=== PATIENT | male | born 1975 | race Caucasian/White ===

== ENCOUNTER 2018-06-30 15:10 | Emergency (ER) | payer BC ==
[~2018-06-30 15:10] MED LIST: ALPRAZOLAM0.25 MG PO; ASPIRIN325 MG PO; BUPROPION HCL75 MG PO; CYCLOBENZAPRINE5 MG PO; FENOFIBRATE145 MG PO; LIPITOR20 MG PO; NICODERM CQ1 EAC1 TOP; PANTOPRAZOLE SO40 MG PO; TOPROL XL25 MG PO; TYLENOL WITH C1 EACH PO
--- OUTSIDE RECORDS SUMMARY | 2018-06-30 15:13 | XMS REPORT ---
Author Author [facility] Address Unknown Phone Unavailable Care Team Providers Care Law Clerk Name Role Phone MAICO GRACIA Unavailable Unavailable Problems This patient has no known problems. Allergies, Adverse Reactions, Alerts This patient has no known allergies or adverse reactions. Medications This patient has no known medications. Results Test Description Test Time Test Comments Text Results Atomic Results Result Comments CERVICAL SPINE 4 OR [address] [address] Patient Name: TI GERMAN MR #: [id number] : 1975 Age/Sex: 41/M Req #: [id number] [facility] Physician: MAICO GRACIA MD Ordered by: ANJEL ASHER MD Report #: [id number] Location: MED/SURG Room/Bed: 1091 Procedure: [id number] DX/CERVICAL SPINE 4 OR 5 VIEWS Exam Date: 01/16/17 Exam Time: 1610 REPORT STATUS: Signed Cervical Spine, 6 views HISTORY: Pain COMPARISON: None. FINDINGS: Limited sensitivity for detection of subtle fractures and ligamentous abnormalities. On the lateral view, the cervical spine is visualized from the skull base to C7. The alignment is normal. Vertebral body heights are maintained. No acute displaced fracture involving the visualized cervical spine. Prevertebral soft tissues are within normal limits. IMPRESSION: No acute radiographic abnormality. Signed by: Dr. Gaudencio Baum MD on 01/16/2017 4:52 PM Dictated By: GAUDENCIO BAUM MD 51 Transcribed By: MEME on 01/16/171651 COPY TO: ANJEL ASHER MD CT CHEST [address] [place] [address] Patient Name: TI GERMAN MR #: [id number] : 1975 Age/Sex: 41/M Req #: [id number] Adm Physician: MAICO GRACIA MD Ordered by: ANJEL ASHER MD Report #: [id number] Location: MED/SURG Room/Bed: Count includes the [facility] Procedure: [id number] CT/CT CHEST W Exam Date: 01/16/17 Exam Time: 1610 REPORT STATUS: Signed EXAM: CT Chest WITH contrast 01/16/2017 12:31 PM INDICATION: COMPARISON: None TECHNIQUE: Chest was scanned utilizing a multidetector helical scanner from the lung apex through the level of the adrenal glands without administration of IV contrast. Coronal and sagittal reformations were obtained. Routine protocol was performed. IV CONTRAST: 100 mL of Isovue-370 COMPLICATIONS: None RADIATION DOSE: Total DLP: 524.07 mGy*cm Estimated effective dose: (DLP x 0.014 x size factor) mSv CTDIvol has been reviewed. It is below the limits set by the Radiation Protocol Committee (RPC). FINDINGS: LINES/ TUBES: None. LUNGS AND AIRWAYS: The lungs are unremarkable. Airways are normal. PLEURA: The pleural spaces are clear. HEART AND MEDIASTINUM: The thyroid gland is normal. No mediastinal, hilar or axillary lymphadenopathy. The heart is normal in size.. There is no pericardial effusion. UPPER ABDOMEN: Unremarkable. BONES: Old or subacute fractures of the posterior right 11th, 10th, and ninth ribs. SOFT TISSUES: Unremarkable. IMPRESSION: No acute thoracic abnormality. Old or subacute fractures of the posterior right 11th, 10th, and 9th ribs. Signed by: Dr. Gaudencio Baum MD on 01/16/2017 5:10 PM Dictated By: GAUDENCIO BAUM MD 09 Transcribed By: MEME on 01/16/171709 COPY TO: ANJEL ASHER MD Stress Test - Treadmill ONLY [place] [address] Patient Name : TI GERMAN MR #: [id number] : 1975 Age/Sex: 41/M Adm Physician : MAICO GRACIA MD Admit Date : 01/15/17 Location : MED/SURG Room/Bed : Count includes the [facility] REPORT: Cardiology Report DATE OF STUDY: January 15, 2017 CARDIAC STRESS TEST TECHNICAL DETAILS: The protocol is Pepe with 85% heart rate at 150 per minute. RESULTS 1. Exercise time 8 minutes 31 seconds. 2. Test stopped because patient achieved his target heart rate. 3. Heart rate increased from 90 to 153 per minute. 4. Blood pressure increased from 130/80 to 176/89. 5. No EKG changes. 6. No chest pain. IMPRESSION: Negative cardiac stress test. Limitations of negative cardiac stress test are discussed. Job#: [id number] EV Signature Date Dictated By: ZACHERY MARTINEZ MD Transcribed By: HUSSEIN on 01/15/17 <Electronically signed by ZACHERY MARTINEZ MD><<Signature on File>>01/18/17 2999 COPY TO: CHEST SINGLE (PORTABLE) [facility] [address] [place] [address] Patient Name: TI GERMAN MR #: [id number] : 1975 Age/Sex: 41/M Req #: [id number] Adm Physician: Ordered by: TI PIZARRO MD Report #: [id number] Location: ER Room/Bed: Procedure: [id number] DX/CHEST SINGLE (PORTABLE) Exam Date: Exam Time: REPORT STATUS: Signed PROCEDURE: CHEST SINGLE (PORTABLE) COMPARISON: None. INDICATIONS: CHEST PAIN FINDINGS: LUNGS: No consolidations or edema. Perihilar opacities likely secondary to focal atelectasis. PLEURA: No effusions or pneumothorax. HEART T MEDIASTINUM: The heart is within normal size-limits. BONES T SOFT TISSUES: No acute findings. CONCLUSION: No acute thoracic abnormality. Jessy Leos D.O. Dictated by: Jessy Leos D.O. on 01/15/2017 at 7:35 Electronically approved by: Jessy Leos D.O. on 01/15/2017 at 7:35 Dictated By: JESSY LEOS DO 4 Transcribed By: KUNAL on 01/15/17734 COPY TO: TI PIZARRO MD
--- OUTSIDE RECORDS SUMMARY | 2018-06-30 15:13 | XMS REPORT | Clinical Summary ---
Author Author [facility] Address Unknown Phone Unavailable Care Team Providers Care Shirt Marker Name Role Phone Asked, No Pcp PCP Unavailable Allergies Comments Active Allergy Reactions Severity Noted Date Codeine Itching 11/26/2016 Medications End Date Status Medication Sig Dispensed Refills Start Date Active clonAZEPAM (KlonoPIN) 0.5 Take 0.5 mg 0 MG tablet by mouth 2 (two) times a day as needed for seizures. Active amitriptyline (ELAVIL) 50 Take 50 mg by 0 MG tablet mouth nightly. Active methocarbamol (ROBAXIN) Take 500 mg 0 500 MG tablet by mouth 4 (four) times a day. Active ALPRAZolam (XANAX) 0.5 MG Take 0.5 mg 0 tablet by mouth nightly as needed for anxiety. Active Problems Not on file Social History Date Tobacco Use Types Packs/Day Years Used Current Every Day Smoker Alcohol Use Drinks/Week oz/Week Comments Yes tonight Sex Assigned at Date Recorded Not on file Industry Job Start Date Occupation Not on file Not on file Not on file Travel End Travel History Travel Start No recent travel history available. Last Filed Vital Signs Not on file Plan of Treatment Health Maintenance Due Date Last Done Comments INFLUENZA VACCINE 11/03/2017 Results Not on fileafter 06/29/2017 Advance Directives Patient has advance care planning documents on file. For more information, eugene saez contact: Marek Londono [address] [place] [address]
--- NOTE | 2018-06-30 15:44 | NUR ---
NO RESPONSE FROM [facility]
== END 2018-06-30 16:36 | disposition short-term general hospital (02) ==
LOC: ER 15:10
DX: Z53.21 Procedure and treatment not carried out due to patient leaving prior to being seen by health care provider (principal)

== ENCOUNTER 2018-11-13 05:23 | Inpatient (IN) | payer SELFPAY ==
[~2018-11-13] VITALS: Ht 175.3 cm; Wt 104.3 kg
[2018-11-13] MEDS ORDERED: SODIUM CHLORIDE 0.9% 1000ML 1,000 ML ONE (05:52)
[2018-11-13] MEDS ORDERED: PANTOPRAZOLE 40 MG 10ML VIAL ONE (05:55)
[2018-11-13] MEDS ORDERED: SODIUM CHLORIDE 0.9% 1000ML 1,000 ML IV STA ×2 (05:56→08:13)
[2018-11-13] MEDS ORDERED: PANTOPRAZOLE 40 MG 10ML VIAL IV STA (05:56)
[2018-11-13] MEDS ORDERED: REGLAN10 MG PO (06:19)
[2018-11-13] MEDS ORDERED: OMEPRAZOLE40 MG PO (06:19)
[2018-11-13] MEDS ORDERED: METOPROLOL TART50 MG PO (06:19)
[2018-11-13 06:57] LABS: BASOPHILS % 0.4 % (0.0-1.0); EOSINOPHILS % 0.1 % (0.0-6.0); HEMATOCRIT 43.2 % (38.2-49.6); HEMOGLOBIN 14.6 g/dL (14.0-18.0); LYMPHOCYTES # (AUTO) 2.1 (1.0-3.2); MEAN CORPUSCULAR HGB CONC 33.8 g/dL (31-35); MEAN CORPUSCULAR VOLUME 82.9 fL (81-99); MONOCYTES # (AUTO) 0.6 (0.2-0.8); NEUTROPHILS # (AUTO) 6.7 (2.1-6.9); NEUTROPHILS % 71.1 % (38.7-80.0); PLATELET COUNT 342 x10e3/uL (140-360); RED BLOOD COUNT 5.21 x10e6/uL (4.3-5.7); RED CELL DISTRIBUTION WIDTH 14.2 % (11.7-14.4)
[2018-11-13] MEDS ORDERED: KETOROLAC TROMETHAMINE 30 MG/ML VIAL IV STA (06:58)
[2018-11-13 07:20] LABS: BILIRUBIN,URINE NEGATIVE (NEGATIVE); CLARITY,URINE CLEAR (CLEAR); COLOR,URINE YELLOW (YELLOW); KETONES,URINE NEGATIVE (NEGATIVE); LEUKOCYTE ESTERASE ,URINE NEGATIVE (NEGATIVE); NITRITE,URINE NEGATIVE (NEGATIVE); PROTEIN,URINE DIPSTICK NEGATIVE (NEGATIVE); URINE UROBILINOGEN 0.2 mg/dL (0.2 - 1)
[2018-11-13 07:22] LABS: ALANINE AMINOTRANSFERASE 99 IU/L (0-55); ALBUMIN 3.4 g/dL (3.5-5.0); ALBUMIN/GLOBULIN RATIO 0.9 (0.8-2.0); ALKALINE PHOSPHATASE 134 IU/L (40-150); BLOOD UREA NITROGEN 7 mg/dL (7-26); BUN/CREATININE RATIO 8 (6-25); CALCIUM 8.8 mg/dL (8.4-10.2); CARBON DIOXIDE 21 mmol/L (22-29); CHLORIDE 102 mmol/L (98-107); CREATINE KINASE 51 IU/L (30-200); CREATININE, SERUM 0.83 mg/dL (0.72-1.25); EST GLOMERULAR FILTRATION RATE > 60 ML/MIN (60-); GLUCOSE 96 mg/dL (74-118); SODIUM 139 mmol/L (136-145)
[2018-11-13 07:26] LABS: INR 0.96; PARTIAL THROMBOPLASTIN TIME 27.5 seconds (23.8-35.5); PROTHROMBIN TIME 13.3 seconds (11.9-14.5)
[2018-11-13 07:31] LABS: AMPHETAMINES SCREEN,URINE NEGATIVE (NEGATIVE); BENZODIAZEPINES SCREEN,URINE NEGATIVE (NEGATIVE); PHENCYCLIDINE SCREEN,URINE NEGATIVE (NEGATIVE)
[2018-11-13 07:33] LABS: BACTERIA,URINE FEW /HPF; EPITHELIAL CELLS,URINE FEW /LPF; WBC,URINE (MAN) 0-5 /HPF (0-5)
--- NOTE | 2018-11-13 08:35 | Diagnostic Imaging Report ---
EXAMINATION: CHEST SINGLE (PORTABLE) INDICATION: CHEST PAIN COMPARISON: None FINDINGS: TUBES and LINES: None. LUNGS: There are bibasilar atelectasis. There is no evidence of pneumonia or pulmonary edema. PLEURA: No pleural effusion or pneumothorax. HEART AND MEDIASTINUM: The cardiomediastinal silhouette is unremarkable. BONES AND SOFT TISSUES: No acute osseous lesion. UPPER ABDOMEN: No free air under the diaphragm. IMPRESSION: Bibasilar atelectasis. Signed by: Dr. Mal Campbell M.D. on 11/13/2018 8:32 AM
--- NOTE | 2018-11-13 09:42 | Diagnostic Imaging Report ---
CT Abdomen And Pelvis with Intravenous Contrast INDICATION: ^BASSEM ABD PAIN H/O PANCREATITIS ^[id number] ^[id number] TECHNIQUE: Thin collimation axial images obtained from the diaphragm to the level of the pubic symphysis following the uneventful administration of 100 cc of low osmolar, nonionic intravenous contrast. Dose reduction techniques used: Automated exposure control, adjustment of the mAs and/or kVp according to patient size, standardized low-dose protocol, and/or iterative reconstruction technique. RADIATION DOSE: Total DLP: 857.3 mGy*cm Estimated effective dose: (DLP x 0.015 x size factor) mSv CTDIvol has been reviewed. It is below the limits set by the Radiation Protocol Committee (RPC). COMPARISON: None. ABDOMEN FINDINGS: Lung Bases: Clear. Small fat-containing left Bochdalek hernia. The visualized portions of the mediastinum are normal. Liver: Significant steatosis. The right lobe measures 20 cm in length. No evidence for mass. Gallbladder: Absent. Biliary tree: No biliary ductal dilatation. Pancreas: Uniform enhancement of the parenchyma with inflammation surrounding the head, neck, and body. No calcifications or ductal dilatation. Spleen: Normal in size. No evidence of mass.. Adrenal Glands: No evidence for mass. Kidneys: Right: Normal enhancement. No soft tissue mass. No hydronephrosis. Left: Normal enhancement. No soft tissue mass. No hydronephrosis. Lymph Nodes: No enlarged abdominal or periaortic lymph nodes. Aorta: Normal in diameter PELVIS FINDINGS: Bowel: Stomach: Normal. Small Bowel: Normal in caliber with normal wall thickness. Large Bowel: Normal in caliber with normal wall thickness. Appendix: Normal appendix. Bladder: Normal. Peritoneum/retroperitoneum: No free fluid or fluid collection. Several isoattenuating foci of soft tissue surrounding the pancreas body and proximal tail extending into the left pararenal space are suggestive of walled off necrosis. There is no associated fat induration to suggest acuity. These may be chronic. Bones: Unremarkable for age. IMPRESSION: 1. Acute interstitial pancreatitis. Several areas of peripancreatic soft tissue are suggestive of healed areas of wall off necrosis. 2. Profound steatosis. Hepatomegaly. 3. Cholecystectomy. Normal biliary tree. Signed by: Dr. Rohan Erwin MD on 11/13/2018 9:39 AM
[2018-11-13] MEDS ORDERED: HYDROMORPHONE 1MG/1ML INJ IV NR (09:45)
[2018-11-13] MEDS ORDERED: ONDANSETRON HCL INJ 2MG/ML 2ML 2 MG/ML VIAL IV NR (10:00)
[2018-11-13 10:24] LABS: CHOLESTEROL 161 MD/DL (0-199); HDL CHOLESTEROL 40 MG/DL (40-60); TRIGLYCERIDES 889 MG/DL (0-149)
[2018-11-13] MEDS: D5.45%NS/KCL 20MEQ 1,000 ML IV SCH ×3 (10:46→20:06)
--- OUTSIDE RECORDS SUMMARY | 2018-11-13 10:52 | XMS REPORT | Clinical Summary ---
Author Author [facility] Organization [facility] Address Unknown Phone Unavailable Care Team Providers Care Financial Services Rep Name Role Phone Asked, No Pcp PCP Unavailable Allergies No Known Allergies Medications End Date Status Medication Sig Dispensed Refills Start Date Active omeprazole (PriLOSEC) 20 Take 20 mg by 0 MG capsule mouth daily. Active oxyCODone-acetaminophen Take 1 tablet 0 (PERCOCET) 5-325 mg per by mouth 9 tablet every 6 (six) hours as needed. 11/30/2018 Active metoprolol tartrate Take 1 tablet 60 tablet 1 (LOPRESSOR) 50 mg tablet (50 mg total) 9 by mouth 2 (two) times a day for 30 days. 08/09/2018 Discontinued clonAZEPAM (KlonoPIN) 0.5 Take 0.5 mg 0 MG tablet by mouth 2 (two) times a day as needed for seizures. 08/09/2018 Discontinued amitriptyline (ELAVIL) 50 Take 50 mg by 0 MG tablet mouth nightly. 08/09/2018 Discontinued methocarbamol (ROBAXIN) Take 500 mg 0 500 MG tablet by mouth 4 (four) times a day. 10/31/2018 Discontinued ALPRAZolam (XANAX) 0.5 MG Take 0.5 mg 0 tablet by mouth daily as needed for anxiety. 09/10/2018 pantoprazole (PROTONIX) Take 1 tablet 60 tablet 0 40 MG EC tablet (40 mg total) 9 by mouth 2 (two) times a day for 30 days. 09/10/2018 amitriptyline (ELAVIL) 50 Take 1 tablet 30 tablet 0 MG tablet (50 mg total) 9 by mouth nightly for 30 days. 09/10/2018 buPROPion XL (WELLBUTRIN Take 1 tablet 30 tablet 0 XL) 150 MG 24 hr tablet (150 mg 9 total) by mouth daily for 30 days. 08/12/2018 Discontinued traMADol (ULTRAM) 50 mg Take 1 tablet 15 tablet 0 tablet (50 mg total) 9 by mouth every 8 (eight) hours as needed for moderate pain for up to 5 days. 09/11/2018 hydrocortisone Insert 1 60 0 (ANUSOL-HC) 25 mg suppository suppository 9 suppository (25 mg total) into the rectum 2 (two) times a day for 30 days. 08/19/2018 Discontinued acetaminophen-codeine Take 1 tablet 15 tablet 0 (TYLENOL WITH CODEINE #3) by mouth 9 300-30 mg per tablet every 8 (eight) hours as needed for moderate pain for up to 5 days. 09/19/2018 pancrelipase, Take 1 90 capsule 0 [id number], capsule by 9 (ZENPEP) 20,000-63,000- mouth 3 84,000 unit (three) times capsule,delayed a day with release(DR/EC) DR capsule meals for 30 days. 10/10/2018 HYDROcodone-acetaminophen Take 1-2 20 tablet 0 (NORCO) 5-325 mg per tablets by 9 tablet mouth every 6 (six) hours as needed for moderate pain or severe pain for up to 5 days. Max Daily Amount: 8 tablets 10/22/2018 HYDROcodone-acetaminophen Take 1 tablet 12 tablet 0 (NORCO) 5-325 mg per by mouth 9 tablet every 6 (six) hours as needed for moderate pain for up to 3 days. Max Daily Amount: 4 tablets 11/05/2018 ALPRAZolam (XANAX) 0.5 MG Take 1 tablet 5 tablet 0 tablet (0.5 mg 9 total) by mouth daily as needed for anxiety for up to 5 days. Active Problems Problem Noted Date Pancreatitis 10/31/2018 Chronic pancreatitis 10/05/2018 Abdominal pain 10/03/2018 Hypertension 10/03/2018 Acute on chronic pancreatitis 08/17/2018 Pancreatic pseudocyst 08/10/2018 Acute pancreatitis 08/09/2018 Resolved Problems Problem Noted Date Resolved Date Intractable abdominal pain 10/03/2018 10/05/2018 Gallstones 10/03/2018 10/05/2018 Gall stone pancreatitis 08/18/2018 10/05/2018 Encounters Care Team Description Date Type Specialty Giovanni Kern MD Yerramadha, Muralidhar Reddy, MD Teqwimuah, Remy, DO Al-Lahiq, Maha, MD Acute on chronic pancreatitis (HCC) (Primary Dx); Essential hypertension; Right upper quadrant abdominal pain 10/30/2018 [facility] General Internal Medicine - Encounter 10/31/2018 Matthieu Morocho MD 10/19/2018 Orders Only General Surgery Macy Colindres MA 10/19/2018 [place] Shmuel Bauman MD CHOLECYSTECTOMY, LAPAROSCOPIC 10/04/2018 Surgery General Surgery Cruzito Singletary MD 10/04/2018 Anesthesia General Surgery Event José Dai MD Yerramadha, Muralidhar Reddy, MD Gall stone pancreatitis (Primary Dx); Intractable abdominal pain; Gallbladder sludge; Chronic pancreatitis, unspecified pancreatitis type (HCC); Pancreatic pseudocyst; Right upper quadrant abdominal pain; Essential hypertension; Chronic biliary pancreatitis (HCC) 10/03/2018 Hospital General Surgery - Encounter 10/06/2018 10/03/2018 Travel Stevie Hunt DO Yerramadha, Muralidhar Reddy, MD Acute on chronic pancreatitis (HCC) (Primary Dx); Generalized anxiety disorder; Pancreatic pseudocyst 08/16/2018 [facility] General Internal Medicine - Encounter 08/19/2018 Bimal Paniagua MD ESOPHAGOGASTRODUODENOSCOPY (EGD) 08/10/2018 Surgery Gastroenterology Lopez De Anda MD 08/10/2018 Anesthesia Gastroenterology Event Marvin Molina MD Yerramadha, Muralidhar Reddy, MD Acute pancreatitis, unspecified complication status, unspecified pancreatitis type (Primary Dx); Pseudocyst of pancreas; Dehydration; Intractable vomiting with nausea, unspecified vomiting type; Gastrointestinal hemorrhage associated with anorectal source 08/09/2018 [facility] General Internal Medicine - Encounter 08/12/2018 after 11/12/2017 Family History Medical History Relation Name Comments Aneurysm Brother Heart disease Father Hypertension Father Diabetes Mother Heart disease Mother Hypertension Mother Relation Name Status Comments Brother Alive Brother Father Alive Mother Alive Sister Alive Social History Date Tobacco Use Types Packs/Day Years Used Former Smoker Smokeless Tobacco: Never Used Comments: vape Alcohol Use Drinks/Week oz/Week Comments Yes Sex Assigned at Date Recorded Male 11/01/2018 2:42 PM CDT Industry Job Start Date Occupation Not on file Not on file Not on file Travel End Travel History Travel Start No recent travel history available. Last Filed Vital Signs Time Taken Vital Sign Reading 10/31/2018 2:46 PM CDT Blood Pressure 143/93 10/31/2018 2:46 PM CDT Pulse 122 10/31/2018 2:46 PM CDT Temperature 36.9 C (98.4 F) 10/31/2018 2:46 PM CDT Respiratory Rate 20 10/31/2018 2:46 PM CDT Oxygen Saturation 95% - Inhaled Oxygen - Concentration 10/30/2018 2:16 PM CDT Weight 99.8 kg (220 lb) 10/30/2018 2:16 PM CDT Height 175.3 cm (5' 9") 10/30/2018 2:16 PM CDT Body Mass Index 32.49 Plan of Treatment Health Maintenance Due Date Last Done Comments INFLUENZA VACCINE 11/03/2018 Procedures Comments Procedure Name Priority Date/Time Associated Diagnosis CT ABDOMEN PELVIS W STAT 10/30/2018 CONTRAST 3:54 PM CDT ESTIMATED GFR STAT 10/30/2018 2:27 PM CDT URINALYSIS SCREEN AND STAT 10/30/2018 MICROSCOPY, WITH REFLEX 2:27 PM CDT TO CULTURE HEPATIC FUNCTION PANEL STAT 10/30/2018 2:27 PM CDT LIPASE LEVEL STAT 10/30/2018 2:27 PM CDT BASIC METABOLIC PANEL STAT 10/30/2018 2:27 PM CDT HC COMPLETE BLD COUNT STAT 10/30/2018 W/AUTO DIFF 2:27 PM CDT URINE CULTURE STAT 10/30/2018 2:27 PM CDT ESTIMATED GFR Routine 10/05/2018 5:46 AM CDT HC COMPLETE BLD COUNT Routine 10/05/2018 W/AUTO DIFF 5:46 AM CDT COMPREHENSIVE METABOLIC Routine 10/05/2018 PANEL 5:46 AM CDT CHOLECYSTECTOMY, 10/04/2018 Gallstone pancreatitis LAPAROSCOPIC, WITH 8:45 PM CDT POSSIBLE CHOLANGIOGRAPHY SURGICAL PATHOLOGY Routine 10/04/2018 REQUEST 7:54 PM CDT IN AN ELECTIVE Routine 10/04/2018 ENDOTRACHEAL AIRWAY 7:36 PM CDT Procedure Note - Hung Madera CRNA - 10/04/2018 7:36 PM CDT Airway Performed by: Hung Madera CRNA Authorized by: Cruzito Singletary MD Location: OR Urgency: Elective Difficult Airway: No Anesthesio logist: Cruzito Singletary MD Resident/C RNA/AA: Hung Madera CRNA Performed by: anesthesio logist Preoxygena rupal with 100% O2: Yes Mask Ventilatio n: Easy mask Final Airway Type: Endotrache al airway Final Endotrache al Airway: ETT Cuffed: Yes Technique Used: Direct laryngosco py Devices/Me thods Used in Placement: Intubatin g stylet Insertion Site: Oral Blade Type: [place] Laryngosco pe Blade/Vide olaryngosc ope Blade Size: 2 ETT Size (mm): 7.0 Cuff at minimum occlusion pressure: Yes Measured from: Lips ETT to Lips (cm): 23 Placement Verified by: CO2 detection, direct visualizat ion and equal breath sounds Laryngosco pic view: Grade IIb - view of arytenoids or posterior of glottis only Rapid Sequence Induction (RSI): No Modified RSI: No Number of Attempts at Approach: 2 ESTIMATED GFR Routine 10/04/2018 5:34 AM CDT HC COMPLETE BLD COUNT Routine 10/04/2018 W/AUTO DIFF 5:34 AM CDT COMPREHENSIVE METABOLIC Routine 10/04/2018 PANEL 5:34 AM CDT US GALLBLADDER STAT 10/03/2018 10:[address] ABDOMEN PELVIS W STAT 10/03/2018 CONTRAST 8:30 AM CDT ECG 12-LEAD STAT 10/03/2018 7:32 AM CDT ESTIMATED GFR STAT 10/03/2018 7:25 AM CDT TROPONIN STAT 10/03/2018 7:25 AM CDT LIPASE LEVEL STAT 10/03/2018 7:25 AM CDT HEPATIC FUNCTION PANEL STAT 10/03/2018 7:25 AM CDT BASIC METABOLIC PANEL STAT 10/03/2018 7:25 AM CDT HC COMPLETE BLD COUNT STAT 10/03/2018 W/AUTO DIFF 7:25 AM CDT ECG ED PRELIMINARY Routine 10/03/2018 INTERPRETATION 6:[address] ABDOMEN PELVIS W WO Routine 08/17/2018 CONTRAST 4:31 PM CDT LIPASE LEVEL Routine 08/17/2018 6:15 AM CDT ESTIMATED GFR STAT 08/16/2018 11:20 PM CDT LIPASE LEVEL STAT 08/16/2018 11:20 PM CDT COMPREHENSIVE METABOLIC STAT 08/16/2018 PANEL 11:20 PM CDT HC COMPLETE BLD COUNT STAT 08/16/2018 W/AUTO DIFF 11:20 PM CDT ESTIMATED GFR Routine 08/12/2018 5:45 AM CDT BASIC METABOLIC PANEL Routine 08/12/2018 5:45 AM CDT HC COMPLETE BLD COUNT Routine 08/12/2018 W/AUTO DIFF 5:45 AM CDT HEMOGLOBIN & HEMATOCRIT Routine 08/11/2018 6:36 PM CDT HEMOGLOBIN & HEMATOCRIT Routine 08/11/2018 10:21 AM CDT ESOPHAGOGASTRODUODENOSCOP 08/10/2018 EPIGASTRIC PAIN Y (EGD) 2:00 PM CDT SURGICAL PATHOLOGY Routine 08/10/2018 REQUEST 1:39 PM CDT ESTIMATED GFR Routine 08/10/2018 4:54 AM CDT LIPASE LEVEL Routine 08/10/2018 4:54 AM CDT COMPREHENSIVE METABOLIC Routine 08/10/2018 PANEL 4:54 AM CDT CREATINE KINASE, TOTAL Timed 08/09/2018 (CPK) 4:18 PM CDT LIPID PANEL Timed 08/09/2018 4:18 PM CDT LACTIC ACID LEVEL, SEPSIS Timed 08/09/2018 - NOW AND REPEAT 2X EVERY 4:18 PM CDT 3 HOURS LACTIC ACID LEVEL, SEPSIS Timed 08/09/2018 - NOW AND REPEAT 2X EVERY 6:30 AM CDT [address] ABDOMEN PELVIS W STAT 08/09/2018 CONTRAST 4:33 AM CDT US GALLBLADDER STAT 08/09/2018 4:01 AM CDT ESTIMATED GFR STAT 08/09/2018 3:25 AM CDT LACTIC ACID LEVEL, SEPSIS STAT 08/09/2018 - NOW AND REPEAT 2X EVERY 3:25 AM CDT 3 HOURS LIPASE LEVEL STAT 08/09/2018 3:25 AM CDT HEPATIC FUNCTION PANEL STAT 08/09/2018 3:25 AM CDT MAGNESIUM LEVEL STAT 08/09/2018 3:25 AM CDT HC COMPLETE BLD COUNT STAT 08/09/2018 W/AUTO DIFF 3:25 AM CDT BASIC METABOLIC PANEL STAT 08/09/2018 3:25 AM CDT URINALYSIS SCREEN AND STAT 08/09/2018 MICROSCOPY, WITH REFLEX 3:20 AM CDT TO CULTURE URINE CULTURE STAT 08/09/2018 3:20 AM CDT ECG 12-LEAD Routine 08/09/2018 2:20 AM CDT after 11/12/2017 Results * CT Abdomen Pelvis W Contrast (10/30/2018 3:54 PM CDT) Only the most recent of 3 results within the time period is included. Specimen Narrative Performed At EXAMINATION:CT ABDOMEN PELVIS W CONTRAST RADIANT CLINICAL HISTORY:epigastric painpancreatitis TECHNIQUE: Multiple axial images of the abdomen and pelvis were obtained following intravenous administration of iodinated contrast. CT imaging was performed with iterative reconstruction technique and/or automated exposure control to reduce radiation dose. COMPARISON: 10/03/2018 IMPRESSION: ABDOMEN: 1. Liver: Moderate to severe fatty infiltration of liver. No mass. 2. Gallbladder: The gallbladder is surgically absent. Interval cholecystectomy. 3. Spleen: The spleen is not enlarged. 4. Pancreas: Small peripancreatic pseudocysts stable versus slightly decreased in size. Small pseudocyst anterior to the neck of the pancreas measures 2.9 cm previously measuring 3.5 cm when remeasured at the same level. No new inflammatory changes. 5. Adrenal Glands: The adrenal glands are unremarkable. 6. Kidneys: The kidneys are unremarkable. No mass, hydronephrosis or calculi. 7. Abdominal Aorta: The abdominal aorta is nonaneurysmal. 8. Nodes: No enlarged retroperitoneal or mesenteric lymphadenopathy. 9. Bowel: No bowel obstruction or inflammatory changes of the large or small bowel. The appendix is normal. 10. Ascites: No ascites or fluid collections. PELVIS: 1.Pelvis: No mass, fluid collection or significant adenopathy. 2. Bones: Osseous structures intact. No suspicious lesions. 3. Lung Bases: Unremarkable SUMMARY: 1. Slight decrease in peripancreatic pseudocysts. No new inflammation of the pancreas or CT findings of acute interstitial pancreatitis. 2.Moderate to severe fatty infiltration of the liver. Interval cholecystectomy. [id number] Procedure Note Interface, Radiology Results Incoming - 10/30/2018 4:13 PM CDT EXAMINATION: CT ABDOMEN PELVIS W CONTRAST CLINICAL HISTORY: epigastric pain pancreatitis TECHNIQUE: Multiple axial images of the abdomen and pelvis were obtained following intravenous administration of iodinated contrast. CT imaging was performed with iterative reconstruction technique and/or automated exposure control to reduce radiation dose. COMPARISON: 10/03/2018 IMPRESSION: ABDOMEN: 1. Liver: Moderate to severe fatty infiltration of liver. No mass. 2. Gallbladder: The gallbladder is surgically absent. Interval cholecystectomy. 3. Spleen: The spleen is not enlarged. 4. Pancreas: Small peripancreatic pseudocysts stable versus slightly decreased in size. Small pseudocyst anterior to the neck of the pancreas measures 2.9 cm previously measuring 3.5 cm when remeasured at the same level. No new inflammatory changes. 5. Adrenal Glands: The adrenal glands are unremarkable. 6. Kidneys: The kidneys are unremarkable. No mass, hydronephrosis or calculi. 7. Abdominal Aorta: The abdominal aorta is nonaneurysmal. 8. Nodes: No enlarged retroperitoneal or mesenteric lymphadenopathy. 9. Bowel: No bowel obstruction or inflammatory changes of the large or small bowel. The appendix is normal. 10. Ascites: No ascites or fluid collections. PELVIS: 1. Pelvis: No mass, fluid collection or significant adenopathy. 2. Bones: Osseous structures intact. No suspicious lesions. 3. Lung Bases: Unremarkable SUMMARY: 1. Slight decrease in peripancreatic pseudocysts. No new inflammation of the pancreas or CT findings of acute interstitial pancreatitis. 2. Moderate to severe fatty infiltration of the liver. Interval cholecystectomy. [facility]-[id number] Performing Organization Address City/State/Zipcode Phone Number [facility] [address] [place] [address] * Urinalysis screen and microscopy, with reflex to culture (10/30/2018 2:27 PM CDT) Only the most recent of 2 results within the time period is included. Specimen site Clean catch [facility] Color, UA Yellow [facility] Appearance, UA Clear [facility] Specific 1.025 1.001 - 1.035 JARA gravity, UA [facility] pH, UA 5.0 5.0 - 8.5 [facility] Protein, UA 1+ (A) Negative [facility] Glucose, UA Negative Negative [facility] Ketones, UA 2+ (A) Negative [facility] Bilirubin, UA Negative Negative [facility] Blood, UA Negative Negative [facility] Nitrite, UA Negative Negative [facility] Urobilinogen, Negative <2.0 [facility] Leukocyte Negative Negative [place] esterase, UA [facility] Epithelial None seen Few /HPF [facility] cells, UA [facility] WBC, UA 0-5 0 - 1 /HPF [facility] RBC, UA 0-5 0 - 5 /HPF [facility] Bacteria, UA None seen None seen [facility] Yeast, UA None seen [facility] Yeast with None seen [place] pseudohyphaeUT [facility] Specimen Urine Performing Organization Address [facility] Phone Number [address] [place] [address] PATHOLOGY AND GENOMIC MEDICINE [address] * Estimated GFR (10/30/2018 2:27 PM CDT) Only the most recent of 8 results within the time period is included. Pathologist [facility] Estimated GFR >=90 mL/min/1.73 m2 [place] Comment: [facility] rpretation G1 >=90 Normal or high G2 60-89Mildly decreased P3n24-23 Mildly to moderately decreased E3d24-86 Moderately to severely decreased G4 15-29Severely decreased G5 <15Kidney failure The eGFR was calculated using the Chronic Kidney Disease Epidemiology Collaboration (CKD-EPI) equation. Interpretation is based on recommendations of the National Kidney Foundation-Kidney Disease Outcomes Quality Initiative (NKF-KDOQI) published in 2014. Specimen Plasma specimen Performing Organization Address City/[facility]/Zipcode Phone Number [address] [place] [address] PATHOLOGY AND GENOMIC MEDICINE [address] * CBC with platelet and differential (10/30/2018 2:27 PM CDT) Only the most recent of 7 results within the time period is included. Pathologist [facility] WBC 5.98 4.50 - 11.00 k/uL [facility] RBC 5.01 4.40 - 6.00 m/uL [facility] HGB 13.8 (L) 14.0 - 18.0 g/dL [facility] HCT 43.0 41.0 - 51.0 % [facility] MCV 85.8 82.0 - 100.0 fL [facility] MCH 27.5 27.0 - 34.0 pg [facility] MCHC 32.1 31.0 - 37.0 g/dL [facility] RDW - SD 45.5 37.0 - 55.0 fL [facility] MPV 8.9 8.8 - 13.2 fL [facility] Platelet count 323 150 - 400 k/uL [facility] Nucleated RBC 0.00 /100 WBC [facility] Neutrophils 64.4 39.0 - 69.0 % [facility] Lymphocytes 26.6 25.0 - 45.0 % [facility] Monocytes 8.0 0.0 - 10.0 % [facility] Eosinophils 0.0 0.0 - 5.0 % [facility] Basophils 0.8 0.0 - 1.0 % [facility] Specimen Blood Performing Organization Address City/[facility] Phone Number [address] [place] [address] PATHOLOGY AND GENOMIC MEDICINE [address] * Urine culture (10/30/2018 2:27 PM CDT) Only the most recent of 2 results within the time period is included. Urine culture SEE COMMENTComment: [facility] Bacteriuria screen negative. [facility] Specimen Urine Performing Organization Address City/[facility]/Zipcode Phone Number [address] [place] [address] PATHOLOGY AND GENOMIC MEDICINE [address] * Lipase level (10/30/2018 2:27 PM CDT) Only the most recent of 6 results within the time period is included. Lipase 41 13 - 60 U/L [facility] Specimen Plasma specimen Performing Organization Address [facility] Phone Number [facility] DEPARTMENT OF [address] [place] [address] [place] [address] PATHOLOGY AND GENOMIC MEDICINE [address] * Hepatic function panel (10/30/2018 2:27 PM CDT) Only the most recent of 3 results within the time period is included. Pathologist [facility] Albumin 4.2 3.5 - 5.0 g/dL [facility] Total bilirubin 0.6 0.0 - 1.2 mg/dL [facility] Bilirubin <0.1 0.0 - 0.3 mg/dL [place] direct [facility] Alkaline 108 40 - 129 U/L [place] phosphatase [facility] Protein 8.1 6.3 - 8.3 g/dL [place] Comment: [facility] 4.6-7.0 g/dL 1 week 4.4-7.6 g/dL 7 months-1year 5.1-7.3 g/dL 1-2 years5.6-7 .5 g/dL >3 years6.0-8 .0 g/dL 18-150 6.3-8.3 g/dL ALT 33 5 - 50 U/L [facility] AST 34 10 - 50 U/L [facility] Specimen Plasma specimen Performing Organization Address [facility] Phone Number [facility] DEPARTMENT OF [facility] [place] [address] PATHOLOGY AND GENOMIC MEDICINE [address] * Basic metabolic panel (10/30/2018 2:27 PM CDT) Only the most recent of 4 results within the time period is included. Sodium 140 135 - 148 mEq/L [facility] Potassium 3.7 3.5 - 5.0 mEq/L [facility] Chloride 98 98 - 112 mEq/L [facility] CO2 19 (L) 24 - 31 mEq/L [facility] Anion gap 23@ANIO (H) 7 - 15 mEq/L [facility] BUN 5 (L) 6 - 20 mg/dL [facility] Creatinine 0.80 0.70 - 1.20 mg/dL [facility] Glucose 82 65 - 99 mg/dL [facility] Calcium 9.3 8.3 - 10.2 mg/dL [facility] Specimen Plasma specimen Performing Organization Address City/State/Zipcode [place] [address] [place] [address] PATHOLOGY AND GENOMIC MEDICINE [facility] [address] [place] [address] [facility] * Comprehensive metabolic panel (10/05/2018 5:46 AM CDT) Only the most recent of 4 results within the time period is included. Sodium 138 135 - 148 mEq/L [facility] Potassium 4.5 3.5 - 5.0 mEq/L [facility] Chloride 104 98 - 112 mEq/L [facility] CO2 24 24 - 31 mEq/L [facility] Anion gap 10@ANIO 7 - 15 mEq/L [facility] BUN 5 (L) 6 - 20 mg/dL [facility] Creatinine 0.90 0.70 - 1.20 mg/dL [facility] Glucose 150 (H) 65 - 99 mg/dL [facility] Calcium 9.4 8.3 - 10.2 mg/dL [facility] Protein 7.3 6.3 - 8.3 g/dL [place] Comment: [facility] 4.6-7.0 g/dL 1 week 4.4-7.6 g/dL 7 months-1year 5.1-7.3 g/dL 1-2 years5.6-7 .5 g/dL >3 years6.0-8 .0 g/dL 18-150 6.3-8.3 g/dL Albumin 3.9 3.5 - 5.0 g/dL [facility] A/G ratio 1.1 0.7 - 3.8 [facility] Alkaline 107 40 - 129 U/L [place] phosphatase [facility] AST 38 10 - 50 U/L [facility] ALT 29 5 - 50 U/L [facility] Total bilirubin 0.4 0.0 - 1.2 mg/dL [facility] Specimen Plasma specimen Performing Organization Address City/State/Zipcode [place] [facility] [place] [place] [address] [place] [address] PATHOLOGY AND GENOMIC MEDICINE [place] [address] * Surgical pathology request (10/04/2018 7:54 PM CDT) Only the most recent of 2 results within the time period is included. [facility] DEPARTMENT OF PATHOLOGY AND GENOMIC MEDICINE Surgical See link below for PDF Lab [facility] pathology Report DEPARTMENT OF report PATHOLOGY AND GENOMIC MEDICINE Result status This is Final Report for [facility] [id number] DEPARTMENT OF PATHOLOGY AND GENOMIC MEDICINE Specimen Performing Organization Address City/[facility] Phone Number [facility] DEPARTMENT [address] [place] [address] PATHOLOGY AND GENOMIC MEDICINE * US Gallbladder (10/03/2018 10:26 AM CDT) Only the most recent of 2 results within the time period is included. Specimen Narrative Performed At EXAMINATION:US GALLBLADDER [facility] CLINICAL HISTORY:RUQ painsludge seen on CT COMPARISON:None. FINDINGS: PANCREAS: The pancreas is not well seen on the current study. LIVER: The liver has no mass lesion. There is no intrahepatic biliary dilatation. The liver has a normal echogenic appearance. CBD: 0.5 cm, within normal limits. Portal vein: The portal vein demonstrates normal hepatopedal flow. Gallbladder:The gallbladder is without evidence of calculi. The gallbladder wall is not thickened and there is no pericholecystic fluid. IMPRESSION: 1. Normal gallbladder ultrasound examination. [id number] Procedure Note Hm Interface, Radiology Results Incoming - 10/03/2018 10:39 AM CDT EXAMINATION: US GALLBLADDER CLINICAL HISTORY: RUQ pain sludge seen on CT COMPARISON: None. FINDINGS: PANCREAS: The pancreas is not well seen on the current study. LIVER: The liver has no mass lesion. There is no intrahepatic biliary dilatation. The liver has a normal echogenic appearance. CBD: 0.5 cm , within normal limits. Portal vein: The portal vein demonstrates normal hepatopedal flow. Gallbladder: The gallbladder is without evidence of calculi. The gallbladder wall is not thickened and there is no pericholecystic fluid. IMPRESSION: 1. Normal gallbladder ultrasound examination. [id number] Performing Organization Address [facility] [place] Phone Number [facility] [address] [place] [address] * ECG 12 lead (10/03/2018 7:32 AM CDT) Only the most recent of 2 results within the time period is included. Ventricular 113 [facility] MUSE rate Atrial rate 113 [facility] IN interval 136 [facility] QRSD interval 74 [facility] QT interval 312 [facility] QTC interval 427 [facility] P axis 1 34 [facility] QRS axis 1 17 [facility] MUSE T wave axis 23 [facility] MUSE EKG impression Sinus tachycardia-Junctional HM MUSE ST depression, probably normal-Borderline ECG-In automated comparison with ECG of 09-AUG-2018 02:20,-ST now depressed in Inferior leads- Specimen Narrative Performed At Performing Organization Address [facility] [place] Phone Number [facility] [place] [address] [place] [address] * Troponin (10/03/2018 7:25 AM CDT) Pathologist [facility] Troponin <0.006 0.000 - 0.040 ng/mL [facility] Comment: MIRANDA LILLY [facility] changed methodology effective: 08/09/2018 at 10:00 am The new method has a 99th percentile cutoff of 0.040 ng/mL Specimen Plasma specimen Performing Organization Address [facility] [place] [address] [place] [address] PATHOLOGY AND GENOMIC MEDICINE [place] MIRANDA LILLY [address] * ECG ED Preliminary Interpretation - Not an Order (10/03/2018 6:54 AM CDT) Narrative Performed At José Dai MD 10/03/20189:30 AM ECG ED Preliminary Interpretation - Not an Order Performed by: José Dai MD Authorized by: José Dai MD ECG reviewed by ED Physician in the absence of a stator connector: yes ([id number]) Previous ECG: Previous ECG:Compared to current Comparison ECG info:08/19/18 Similarity:No change Interpretation: Interpretation: abnormal Rate: ECG rate:113 ECG rate assessment: tachycardic Rhythm: Rhythm: sinus tachycardia Ectopy: Ectopy: none QRS: QRS axis:Normal QRS intervals:Normal Conduction: Conduction: normal ST segments: ST segments:Normal T waves: T waves: normal * CT Abdomen Pelvis W Wo Contrast (08/17/2018 4:31 PM CDT) Specimen Narrative Performed At EXAMINATION:CT ABDOMEN PELVIS W WO CONTRAST [facility] CLINICAL HISTORY:chronic pancreatitis COMPARISON:CT abdomen and pelvis with contrast dated 08/09/2018 TECHNIQUE:CT of the abdomen and pelvis with and without intravenous contrast. CT imaging was performed with iterative reconstruction techniques and/or automated exposure control to reduce radiation dose. FINDINGS: LOWER THORAX:There is no pericardial effusion. There is subsegmental atelectasis/scarring in the dependent portions of both lungs. There is no pleural effusion. HEPATOBILIARY:There is mildly diffusely decreased attenuation of the liver parenchyma, consistent with hepatic steatosis. There is no definite suspicious solid mass. The gallbladder appears unremarkable. There is no biliary ductal dilatation. There is no evidence of radiodense choledocholithiasis. SPLEEN:There is no splenomegaly. PANCREAS:There is mild residual peripancreatic inflammation, particularly surrounding the body and tail. There appear to be 2 separate lobulated pseudocysts, one of which is located superior to the pancreatic neck, measuring approximately 3.2 x 2.4 x 2.0 cm (series 4 image 57), and the other located just inferior to the pancreatic body measuring approximately 5.2 x 2.3 x 1.9 cm (series 4 image 70 and series 600b image 34). There is no definite suspicious solid mass. There is no pancreatic ductal dilatation. ADRENALS:There is no adrenal nodule. KIDNEYS:There is nonspecific bilateral perirenal stranding. There is no nephroureterolithiasis. There is no hydroureter/hydronephrosis. There is no solid mass. PELVIC ORGANS:Unremarkable. GI TRACT:There is mild circumferential wall thickening of the lower esophagus which may reflect underdistention and/or esophagitis.Oral contrast has reached the jejunum. Radiodense tablets are seen within the colon. There is increased fecal retention, suggestive of mild constipation. There is no gastrointestinal distention to suggest obstruction.There is no definite pathologic gastrointestinal wall thickening. There is no pneumatosis intestinalis. The appendix appears normal. PERITONEUM/RETROPERITONEUM:There is no free intraperitoneal air. There is no free fluid or focal drainable collection. LYMPHATIC: There is no lymphadenopathy. VESSELS: Unremarkable. BONES AND SOFT TISSUES:There is mild exaggeration of the lumbar lordosis with minimal degenerative change of the visualized spine. There is no acute or suspicious osseous abnormality. There is a tiny fat-containing umbilical hernia. There are small fat-containing bilateral inguinal hernias. There is no focal drainable fluid collection. IMPRESSION: Mild residual peripancreatic inflammation with interval organization of 2 pseudocysts associated with the pancreatic neck and body, as detailed above. Patent splenic vein. No evidence of gastrointestinal obstruction. [facility]-[id number] Procedure Note [facility], Radiology Results Incoming - 08/17/2018 4:59 PM CDT EXAMINATION: CT ABDOMEN PELVIS W WO CONTRAST CLINICAL HISTORY: chronic pancreatitis COMPARISON: CT abdomen and pelvis with contrast dated 08/09/2018 TECHNIQUE: CT of the abdomen and pelvis with and without intravenous contrast. CT imaging was performed with iterative reconstruction techniques and/or automated exposure control to reduce radiation dose. FINDINGS: LOWER THORAX: There is no pericardial effusion. There is subsegmental atelectasis/scarring in the dependent portions of both lungs. There is no pleural effusion. HEPATOBILIARY: There is mildly diffusely decreased attenuation of the liver parenchyma, consistent with hepatic steatosis. There is no definite suspicious solid mass. The gallbladder appears unremarkable. There is no biliary ductal dilatation. There is no evidence of radiodense choledocholithiasis. SPLEEN: There is no splenomegaly. PANCREAS: There is mild residual peripancreatic inflammation, particularly surrounding the body and tail. There appear to be 2 separate lobulated pseudocysts, one of which is located superior to the pancreatic neck, measuring approximately 3.2 x 2.4 x 2.0 cm (series 4 image 57), and the other located just inferior to the pancreatic body measuring approximately 5.2 x 2.3 x 1.9 cm (series 4 image 70 and series 600b image 34). There is no definite suspicious solid mass. There is no pancreatic ductal dilatation. ADRENALS: There is no adrenal nodule. KIDNEYS: There is nonspecific bilateral perirenal stranding. There is no nephroureterolithiasis. There is no hydroureter/hydronephrosis. There is no solid mass. PELVIC ORGANS: Unremarkable. GI TRACT: There is mild circumferential wall thickening of the lower esophagus which may reflect underdistention and/or esophagitis. Oral contrast has reached the jejunum. Radiodense tablets are seen within the colon. There is increased fecal retention, suggestive of mild constipation. There is no gastrointestinal distention to suggest obstruction. There is no definite pathologic gastrointestinal wall thickening. There is no pneumatosis intestinalis. The appendix appears normal. PERITONEUM/RETROPERITONEUM: There is no free intraperitoneal air. There is no free fluid or focal drainable collection. LYMPHATIC: There is no lymphadenopathy. VESSELS: Unremarkable. BONES AND SOFT TISSUES: There is mild exaggeration of the lumbar lordosis with minimal degenerative change of the visualized spine. There is no acute or suspicious osseous abnormality. There is a tiny fat-containing umbilical hernia. There are small fat-containing bilateral inguinal hernias. There is no focal drainable fluid collection. IMPRESSION: Mild residual peripancreatic inflammation with interval organization of 2 pseudocysts associated with the pancreatic neck and body, as detailed above. Patent splenic vein. No evidence of gastrointestinal obstruction. [facility]-[id number] Performing Organization Address [facility] Phone Number [facility] [address] [place] [address] * Hemoglobin & hematocrit (08/11/2018 6:36 PM CDT) Only the most recent of 2 results within the time period is included. HGB 12.3 (L) 14.0 - 18.0 g/dL [facility] HCT 39.9 (L) 41.0 - 51.0 % [facility] Specimen Blood Performing Organization Address [facility] Phone Number [facility] [place] [id number] [place] [address] [place] [address] PATHOLOGY AND GENOMIC MEDICINE [address] * Lactic acid level, SEPSIS - Now and repeat 2x every 3 hours (08/09/2018 4:18 PM CDT) Only the most recent of 3 results within the time period is included. Lactic acid 1.5 0.5 - 2.2 mmol/L [facility] Specimen Plasma specimen Performing Organization Address City/[facility]/Zipcode Phone Number [facility] [place] [id number] [place] [address] [place] [address] PATHOLOGY AND GENOMIC MEDICINE [facility] [id number] [place] [address] * Creatine kinase, total (CPK) (08/09/2018 4:18 PM CDT) Creatine kinase 61 39 - 308 U/L [facility] Specimen Plasma specimen Performing Organization Address [facility] [place] Phone Number [facility] [place] [place] [id number] [place] [address] [place] [address] PATHOLOGY AND GENOMIC MEDICINE [facility] [address] * Lipid panel (08/09/2018 4:18 PM CDT) Cholesterol 181 <200 mg/dL [facility] Triglycerides 286 (A) <150 mg/dL [facility] HDL cholesterol 45 >40 mg/dL [facility] LDL cholesterol 119 (H)Comment: Result <100 mg/dL [facility] obtained by direct LDL [facility] Comment: [facility] Total Cholesterol [facility] (mg/dL) <200 Desirable 200-239Borderline -high >=240High Triglycerides (mg/dL) <150 Normal 150-199Borderline -high 200-499High >=500Very high HDL Cholesterol (mg/dL) <40Low (male) <40Low (female) LDL Cholesterol (mg/dL) <100 Optimal 100-129Near or above optimal 130-159Borderline -high 160-189High >=190Very high Risk Catergories that modify LDL goals. Risk Catergories LDL goal (mg/dL) CHD and CHD risk equivalent<100 (10-year risk >20%) Multiple (2+) risk factors <130 (10-year risk=<20%) 0-1 risk factors <160 (<10-year risk) Defining levels of lipids in metabolic syndrome Triglycerides >=150 mg/dL HDL Cholesterol Men <40 mg/dL Women <40 mg/dL Non-HDL cholesterol is a second target for therapy in persons with high triglycerides (>=200 mg/dL) Specimen Plasma specimen Performing Organization Address [facility]/State/Zipcode Phone Number [facility] DEPARTMENT [address] [place] [address] PATHOLOGY AND GENOMIC MEDICINE [address] * Magnesium level (08/09/2018 3:25 AM CDT) Magnesium 2.1 1.6 - 2.6 mg/dL [facility] Specimen Plasma specimen Performing Organization Address [facility]/Zipcode Phone Number [address] [place] [address] PATHOLOGY AND GENOMIC MEDICINE [address] after 11/12/2017 Advance Directives Patient has advance care planning documents, and code status on file. For more i nformation, please contact: [facility] [address] [place] [address] Date Inactivated Comments Code Status Date Activated 10/06/2018 2:06 PM Full Code 10/04/2018 8:34 PM Code Status decision reached by: Patient 08/12/2018 8:08 PM Full Code 08/09/2018 6:27 AM Code Status decision reached by: Patient
--- OUTSIDE RECORDS SUMMARY | 2018-11-13 10:53 | XMS REPORT | Clinical Summary ---
Author Author [facility] Address Unknown Phone Unavailable Care Team Providers Care Registered Diet Technician Name Role Phone Pcp, No PCP Unavailable Allergies No Known Allergies Medications End Date Status Medication Sig Dispensed Refills Start Date Active venlafaxine (EFFEXOR-XR) Take 75 mg by 0 75 MG 24 hr capsule mouth daily. Active wdiunq-fpkbivxp-qgygwhl Take 72,000 0 (CREON) 36,000-114,000- units of 180,000 unit CpDR capsule lipase by mouth 3 (three) times daily with meals . Active dicyclomine (BENTYL) 10 Take 10 mg by 0 MG capsule mouth 3 (three) times daily. Active fenofibrate (LOFIBRA) 54 Take 54 mg by 0 MG tablet mouth daily. Active promethazine (PHENERGAN) Take 25 mg by 0 25 MG tablet mouth every 6 (six) hours as needed for Nausea. Active pantoprazole (PROTONIX) Take 40 mg by 0 40 MG tablet mouth daily. Active acetaminophen-codeine Take 1 tablet 0 (TYLENOL #3) 300-30 mg by mouth 9 per tablet every 8 (eight) hours as needed for Pain. 09/14/2018 Discontinued omeprazole (PRILOSEC) 20 Take 20 mg by 0 MG capsule mouth daily. 09/17/2018 Discontinued oxyCODONE-acetaminophen Take 1 tablet 0 (PERCOCET) 5-325 mg per by mouth tablet every 6 (six) hours as needed for Pain. 09/14/2018 Discontinued amitriptyline (ELAVIL) 25 Take 25 mg by 0 MG tablet mouth nightly. 09/17/2018 Discontinued LORazepam (ATIVAN) 1 MG Take 1 mg by 0 tablet mouth every 6 (six) hours as needed for Anxiety. 09/17/2018 Discontinued buPROPion (WELLBUTRIN XL) Take 1 tablet 0 150 MG 24 hr tablet by mouth 9 daily. 09/17/2018 Discontinued LORazepam (ATIVAN) 1 MG Take 1 tablet 30 tablet 0 tablet (1 mg total) 9 by mouth every night as needed for Anxiety. Max Daily Amount: 1 mg 10/02/2018 polyethylene glycol Take 17 g by 14 each 0 (GLYCOLAX) 17 gram packet mouth daily 9 for 14 days. 09/24/2018 oxyCODONE-acetaminophen Take 1 tablet 28 tablet 0 (PERCOCET) 10-325 mg per by mouth 9 tablet every 6 (six) hours as needed for up to 7 days. Max Daily Amount: 4 tablets 09/24/2018 LORazepam (ATIVAN) 1 MG Take 1 tablet 7 tablet 0 tablet (1 mg total) 9 by mouth every night as needed for Anxiety for up to 7 days. Max Daily Amount: 1 mg Active Problems Problem Noted Date Pancreatic pseudocyst 09/14/2018 GERD (gastroesophageal reflux disease) 09/14/2018 Hypertension 09/14/2018 ETOH abuse 09/14/2018 Acute on chronic pancreatitis 09/13/2018 Encounters Care Team Description Date Type Specialty 09/14/2018 Travel Buddy Chase MD Brann, MD Jorge Pruitt, Marbella Perla MD Acute on chronic pancreatitis (HCC) (Primary Dx) 09/13/2018 [facility] General Internal Medicine - Encounter 09/17/2018 09/13/2018 Travel after 11/12/2017 Family History Medical History Relation Name Comments Hypertension Father Diabetes Mother Hypertension Mother Relation Name Status Comments Father Mother Social History Date Tobacco Use Types Packs/Day Years Used Former Smoker Smokeless Tobacco: Never Used Alcohol Use Drinks/Week oz/Week Comments No Alcohol Habits Answer Date Recorded How often do you have a drink containing alcohol? Never 09/13/2018 How many drinks containing alcohol do you have on Not asked a typical day when you are drinking? How often do you have six or more drinks on one Not asked occasion? Sex Assigned at Date Recorded Not on file Industry Job Start Date Occupation Not on file Not on file Not on file Travel End Travel History Travel Start No recent travel history available. Last Filed Vital Signs Time Taken Vital Sign Reading 09/17/2018 1:05 PM CDT Blood Pressure 118/76 09/17/2018 1:05 PM CDT Pulse 83 09/17/2018 1:05 PM CDT Temperature 35.6 C (96 F) 09/17/2018 1:05 PM CDT Respiratory Rate 18 09/17/2018 1:05 PM CDT Oxygen Saturation 97% - Inhaled Oxygen - Concentration 09/13/2018 9:19 PM CDT Weight 99.8 kg (220 lb) 09/13/2018 9:19 PM CDT Height 175.3 cm (5' 9") 09/13/2018 9:19 PM CDT Body Mass Index 32.49 Plan of Treatment Not on file Procedures Comments Procedure Name Priority Date/Time Associated Diagnosis REPORT OF PROCEDURE - 09/19/2018 ENDOSCOPY SCAN 2:13 PM CDT CBC W/PLT COUNT & AUTO Routine 09/17/2018 DIFFERENTIAL 3:29 AM CDT APTT Routine 09/17/2018 3:29 AM CDT PROTHROMBIN TIME/INR Routine 09/17/2018 3:29 AM CDT CBC W/PLT COUNT & AUTO Routine 09/17/2018 DIFFERENTIAL 3:29 AM CDT MAGNESIUM Routine 09/17/2018 3:29 AM CDT HEPATIC FUNCTION PANEL Routine 09/17/2018 3:29 AM CDT BASIC METABOLIC PANEL (7) Routine 09/17/2018 3:29 AM CDT CBC W/PLT COUNT & AUTO Routine 09/16/2018 DIFFERENTIAL 6:08 AM CDT APTT Routine 09/16/2018 6:08 AM CDT PROTHROMBIN TIME/INR Routine 09/16/2018 6:08 AM CDT CBC W/PLT COUNT & AUTO Routine 09/16/2018 DIFFERENTIAL 6:08 AM CDT MAGNESIUM Routine 09/16/2018 6:08 AM CDT HEPATIC FUNCTION PANEL Routine 09/16/2018 6:08 AM CDT BASIC METABOLIC PANEL (7) Routine 09/16/2018 6:08 AM CDT CBC W/PLT COUNT & AUTO Routine 09/15/2018 DIFFERENTIAL 2:45 AM CDT APTT Routine 09/15/2018 2:45 AM CDT PROTHROMBIN TIME/INR Routine 09/15/2018 2:45 AM CDT CBC W/PLT COUNT & AUTO Routine 09/15/2018 DIFFERENTIAL 2:45 AM CDT MAGNESIUM Routine 09/15/2018 2:45 AM CDT HEPATIC FUNCTION PANEL Routine 09/15/2018 2:45 AM CDT BASIC METABOLIC PANEL (7) Routine 09/15/2018 2:45 AM CDT CBC W/PLT COUNT & AUTO Routine 09/14/2018 DIFFERENTIAL 4:18 AM CDT APTT Routine 09/14/2018 4:18 AM CDT PROTHROMBIN TIME/INR Routine 09/14/2018 4:18 AM CDT CBC W/PLT COUNT & AUTO Routine 09/14/2018 DIFFERENTIAL 4:18 AM CDT MAGNESIUM Routine 09/14/2018 4:18 AM CDT HEPATIC FUNCTION PANEL Routine 09/14/2018 4:18 AM CDT BASIC METABOLIC PANEL (7) Routine 09/14/2018 4:18 AM CDT MR ABDOMEN WO CONTRAST STAT 09/14/2018 MRCP 3:43 AM CDT ECG 12-LEAD Routine 09/14/2018 12:28 AM CDT RAPID DRUG SCREEN, URINE STAT 09/13/2018 11:29 PM CDT ETHANOL STAT 09/13/2018 11:24 PM CDT CBC W/PLT COUNT & AUTO STAT 09/13/2018 DIFFERENTIAL 9:59 PM CDT PT/APTT STAT 09/13/2018 9:59 PM CDT LIPASE STAT 09/13/2018 9:59 PM CDT HEPATIC FUNCTION PANEL STAT 09/13/2018 9:59 PM CDT CBC W/PLT COUNT & AUTO STAT 09/13/2018 DIFFERENTIAL 9:59 PM CDT BASIC METABOLIC PANEL (7) STAT 09/13/2018 9:59 PM CDT after 11/12/2017 Results * EKG-SCANNED (09/19/2018 2:13 PM CDT) Narrative Performed At * CBC with platelet count + automated diff (09/17/2018 3:29 AM CDT) Only the most recent of 5 results within the time period is included. WBC 6.9 3.5 - 10.5 K/L [facility] RBC 4.63 4.63 - 6.08 M/L [facility] Hemoglobin 12.7 (L) 13.7 - 17.5 GM/DL [facility] Hematocrit 41.3 40.1 - 51.0 % [facility] MCV 89.2 79.0 - 92.2 fL [facility] MCH 27.4 25.7 - 32.2 pg [facility] MCHC 30.8 (L) 32.3 - 36.5 GM/DL [facility] RDW 16.1 (H) 11.6 - 14.4 % [facility] Platelets 339 150 - 450 K/CU MM [facility] MPV 9.5 9.4 - 12.4 fL [facility] nRBC 0 0 - 0 /100 WBC [facility] % Neutros 55 % [facility] % Lymphs 31 % [facility] % Monos 10 % [facility] % Eos 3 % [facility] % Baso 1 % [facility] # Neutros 3.81 1.78 - 5.38 K/L [facility] # Lymphs 2.15 1.32 - 3.57 K/L [facility] # Monos 0.70 0.30 - 0.82 K/L [facility] # Eos 0.17 0.04 - 0.54 K/L [facility] # Baso 0.04 0.01 - 0.08 K/L [facility] Immature 0 0 - 1 % [facility] Granulocytes-[facility] Specimen Blood Performing Organization Address City/State/Zipcode Phone Number [address] [address] [facility] * aPTT (09/17/2018 3:29 AM CDT) Only the most recent of 4 results within the time period is included. PTT 28.6 22.5 - 36.0 seconds [facility] Specimen Blood Performing Organization Address City/State/Zipcode Phone Number [facility] [address] [place] [address] [facility] * Prothrombin time/INR (09/17/2018 3:29 AM CDT) Only the most recent of 4 results within the time period is included. Protime 13.2 11.9 - 14.2 seconds [facility] INR 1.0 <=5.9 [facility] Specimen Blood Narrative Performed At Effective 08/31/2018: PT Reference Range Change [facility] New: 11.9-14.2Previous: 11.7-14.7 [facility] RECOMMENDED COUMADIN/WARFARIN INR THERAPY RANGES STANDARD DOSE: 2.0-3.0Includes: PROPHYLAXIS for venous thrombosis, systemic embolization; TREATMENT for venous thrombosis and/or pulmonary embolus. HIGH RISK: Target INR is 2.5-3.5 for patients wiht mechanical heart valves. Performing Organization Address City/[facility] Phone Number [address] [address] [facility] * Magnesium (09/17/2018 3:29 AM CDT) Only the most recent of 4 results within the time period is included. Magnesium 1.9 1.6 - 2.6 mg/dL [facility] Specimen Blood Performing Organization Address [facility] Phone Number [address] [address] [facility] * Hepatic function panel (09/17/2018 3:29 AM CDT) Only the most recent of 5 results within the time period is included. Protein, Total 7.1 6.0 - 8.3 gm/dL [facility] Albumin 3.7 3.5 - 5.0 g/dL [facility] Total Bilirubin 0.3 0.2 - 1.2 mg/dL [facility] Bilirubin, Direct 0.1 0.1 - 0.5 mg/dL [facility] Alkaline Phosphatase 76 40 - 150 U/L [facility] AST 15 5 - 34 U/L [facility] ALT 15 6 - 55 U/L [facility] Specimen Blood Performing Organization Address [facility]conv Phone Number [address] [address] [facility] * Basic metabolic panel (09/17/2018 3:29 AM CDT) Only the most recent of 5 results within the time period is included. Sodium 137 136 - 145 meq/L [facility] Potassium 4.4 3.5 - 5.1 meq/L [facility] Chloride 101 98 - 107 meq/L [facility] CO2 28 22 - 29 meq/L [facility] BUN 7 7 - 21 mg/dL [facility] Creatinine 0.84 0.57 - 1.25 mg/dL [facility] Glucose 83 70 - 105 mg/dL [facility] Calcium 9.1 8.4 - 10.2 mg/dL [facility] EGFR 99Comment: ESTIMATED GFR IS mL/min/1.73 sq m [facility] NOT ACCURATE CREATININE [facility] CLEARANCE IN PREDICTING GLOMERULAR FILTRATION RATE. ESTIMATED GFR IS NOT APPLICABLE FOR DIALYSIS PATIENTS. Specimen Blood Performing Organization Address City/State/Zipcode Phone Number [facility] [address] [place] [address] [facility] * MR abdomen without IV contrast MRCP (09/14/2018 3:43 AM CDT) Specimen Narrative Performed At FINAL REPORT [employer] INDICATION: Pancreatic cyst or pseudocyst. Follow-up. COMPARISON: None available. TECHNIQUE: MR of the Abdomen with MRCP including 3-D reconstructions. Intravenous contrast was not used. FINDINGS: There is no pancreatic cyst or pseudocyst. No pancreatic mass or ductal dilatation. Pancreatic ductal anatomy is normal (no divisum). There is diffuse loss of signal in the liver on out of phase imaging representing steatosis. Liver contour is smooth and liver is normal in size. No liver mass. Gallbladder is unremarkable. There is no biliary duct dilatation. No upper abdominal lymphadenopathy. Spleen is normal in size. Adrenal glands and kidneys unremarkable. No upper abdominal free fluid and no peritoneal collection demonstrated. Visualized bowel loops are unremarkable. No pleural effusion. IMPRESSION: No pancreatic cyst or pseudocyst. Unremarkable noncontrast abdomen MRCP exam. Signed: Marvel Cain MD Report Verified Date/Time:09/14/2018 09:23:44 Reading Location: [facility] B1 C013Y CT Body Reading Room Procedure Note Interface, External Ris In - 09/14/2018 9:25 AM CDT FINAL REPORT INDICATION: Pancreatic cyst or pseudocyst. Follow-up. COMPARISON: None available. TECHNIQUE: MR of the Abdomen with MRCP including 3-D reconstructions. Intravenous contrast was not used. FINDINGS: There is no pancreatic cyst or pseudocyst. No pancreatic mass or ductal dilatation. Pancreatic ductal anatomy is normal (no divisum). There is diffuse loss of signal in the liver on out of phase imaging representing steatosis. Liver contour is smooth and liver is normal in size. No liver mass. Gallbladder is unremarkable. There is no biliary duct dilatation. No upper abdominal lymphadenopathy. Spleen is normal in size. Adrenal glands and kidneys unremarkable. No upper abdominal free fluid and no peritoneal collection demonstrated. Visualized bowel loops are unremarkable. No pleural effusion. IMPRESSION: No pancreatic cyst or pseudocyst. Unremarkable noncontrast abdomen MRCP exam. Signed: Marvel Cain MD Report Verified Date/Time: 09/14/2018 09:23:44 Reading Location: [facility] B1 C013Y CT Body Reading Room Performing Organization Address City/State/Zipcode Phone Number [facility] * ECG 12 lead (09/14/2018 12:28 AM CDT) Specimen Narrative Performed At Ventricular Rate 99 BPM GE MUSE Atrial Rate 99 BPM P-R Interval 138 ms QRS Duration 84 ms Q-T Interval 332 ms QTC Calculation(Bazett) 426 ms P Newell 47 degrees R Newell 41 degrees T Newell 26 degrees Normal sinus rhythm Normal ECG No previous ECGs available Confirmed by MD Desai Roberto ([id number]) on 09/15/2018 10:14:02 AM Procedure Note Interface, External Ris In - 09/15/2018 10:14 AM CDT Ventricular Rate 99 BPM Atrial Rate 99 BPM P-R Interval 138 ms QRS Duration 84 ms Q-T Interval 332 ms QTC Calculation(Bazett) 426 ms P Newell 47 degrees R Newell 41 degrees T Newell 26 degrees Normal sinus rhythm Normal ECG No previous ECGs available Confirmed by MD Lloyd, Minor ([id number]) on 09/15/2018 10:14:02 AM Performing Organization Address [facility] Phone Number SAMI BENNETT * Rapid drug screen, urine (09/13/2018 11:29 PM CDT) Barbiturate Screen Negative Negative [facility] Benzodiazepine Screen Negative Negative [facility] Cocaine (Metab.) Screen Negative Negative [facility] Methadone Screen Negative Negative [facility] Opiate Screen Positive (A) Negative [facility] Cannabinoid Screen Negative Negative [facility] Amph/Methamph Screen Negative Negative [facility] Phencyclidine Screen Negative Negative [facility] Specimen Urine Narrative Performed At [facility] Cocaine 300 ng/mL [facility] Xpgchoepsdr69 ng/mL Qelvrgnzupbrvr766 ng/mL Barbiturate 200 ng/mL Uoberapcszzhs57 ng/mL Kpfuab099 ng/mL Methadone 300 ng/mL Amphetamine/ 1000 ng/mL Methamphetamine This assay provides an unconfirmed qualitative test result for the clinical management of patients in emergency situations. Chain of custody not maintained. Some ngvx-iwh-ojuolkr medications, as well as adulterants, may cause inaccurate results. Clinical correlation should be applied. A more comprehensive drug screen or confirmation of a detected drug may be performed upon request. Performing Organization Address [facility] Phone Number [place] [phone] [place] [address] [phone] * Ethanol (09/13/2018 11:24 PM CDT) Ethanol Lvl <10 <=10 mg/dL [facility] Specimen Blood Performing Organization Address [facility] Phone Number [place] [address] [place] [phone] [address] * PT/aPTT (09/13/2018 9:59 PM CDT) Protime 12.3 11.9 - 14.2 seconds [facility] INR 1.0 <=5.9 [facility] PTT 28.1 22.5 - 36.0 seconds [facility] Specimen Blood Narrative Performed At Effective 08/31/2018: PT Reference Range Change [facility] New: 11.9-14.2Previous: 11.7-14.7 [facility] RECOMMENDED COUMADIN/WARFARIN INR THERAPY RANGES STANDARD DOSE: 2.0-3.0Includes: PROPHYLAXIS for venous thrombosis, systemic embolization; TREATMENT for venous thrombosis and/or pulmonary embolus. HIGH RISK: Target INR is 2.5-3.5 for patients wiht mechanical heart valves. Performing Organization Address City/[facility] Cent[facility]ode Phone Number [address] [address] [facility] * Lipase (09/13/2018 9:59 PM CDT) Lipase 48 8 - 78 U/L [facility] Specimen Blood Performing Organization Address City/[facility] Phone Number [address] [address] [facility] after 11/12/2017 Advance Directives For more information, please contact: [address] [address] Date Inactivated Comments Code Status Date Activated 09/17/2018 5:51 PM Full Code 09/14/2018 12:15 AM This code status was determined by: Patient
[2018-11-13] MEDS ORDERED: SODIUM CHLORIDE 0.9% 50ML 50 ML ONE (11:20)
[2018-11-13] MEDS ORDERED: IOPAMIDOL 370 MG/ML 200 ML INFUS..BTL INJ ONE (11:21)
[2018-11-13 11:52] VITALS: BP 138/95
--- NOTE | 2018-11-13 11:52 | NUR ---
PATIENT ARRIVED ON THE UNIT AT 1141 FROM THE ER. PATIENT IN STABLE CONDITION WITH NO S/S OF RESPIRATORY DISTRESS. PATIENT C/O OF UPPER RIGHT ABD PAIN 8/10; PAIN MEDICATION IS NOT AVAILABLE AT THIS TIME AND PATIENT AWARE. IV FLUIDS INFUSING. SKINS INTACT. CALL LIGHT IS WITHIN REACH, PATIENT INSTRUCTED TO CALL FOR ASSISTANCE NEEDED.
[2018-11-13] MEDS ORDERED: ELAVIL PO (12:18)
[2018-11-13 12:55] VITALS: BP 138/95
[2018-11-13] MEDS: HYDROMORPHONE 1MG/1ML INJ IV PRN ×3 (14:31→23:59)
--- NOTE | 2018-11-13 15:06 | NUR ---
CALL PLACED OUT TO DR. JOHNSON REGARDING PATIENT C/O SHARP CHEST PAIN TO HIS RIGHT CHEST AND BEING SHORT OF BREATH WHEN THE SHARP CP OCCURS. PATIENT IS IN STABLE CONDITION AT THE MOMENT. EKG PREVIOUSLY DONE AND INDICATED SINUS TACH. PATIENT STATES HE HAS ANXIETY; PATIENT LAST TOOK HIS ANXIETY MED ON WEDNESDAY. AWAITING CALLBACK.
--- NOTE | 2018-11-13 15:12 | NUR ---
RECEIVED CALLBACK FROM DR. JOHNSON - DR. JOHNSON INFORMED OF PATIENT BEING ADMITTED TO HIM. DR. JOHNSON ALSO INFORMED OF PATIENT'S CP- NO NEW ORDERS RECEIVED.
[2018-11-13 16:11] VITALS: BP 133/83
[2018-11-13 17:13] LABS: CREATINE KINASE 44 IU/L (30-200)
--- NOTE | 2018-11-13 17:59 | NUR ---
CALL PLACED OUT TO DR. JOHNSON FOR PRN ANXIETY MEDICATION - AWAITING CALLBACK.
[2018-11-13] MEDS ORDERED: LORAZEPAM INJ 2 MG/ML VIAL IV NR (18:08)
[2018-11-13] MEDS: ONDANSETRON HCL INJ 2MG/ML 2ML 2 MG/ML VIAL IV PRN (18:42)
--- NOTE | 2018-11-13 19:29 | NUR ---
PATIENT IN STABLE CONDITION WITH NO S/S OF RESPIRATORY DISTRESS. NO PAIN VOICED. IV FLUIDS INFUSING. PRESENT IN ROOM. CALL LIGHT IS WITHIN REACH, PATIENT INSTRUCTED TO CALL FOR ASSISTANCE NEEDED. BEDSIDE REPORT GIVEN TO ONCOMING NURSE.
[2018-11-13 19:32] VITALS: BP 134/90
--- NOTE | 2018-11-13 19:32 | NUR ---
PT IS RESTING IN BED. RESPIRATION IS EVEN AND UNLABORED, NO DISTRESS NOTED. BED IN THE LOWEST POSITION, LOCKED, AND CALL LIGHT WITHIN REACH. WILL CONTINUE TO MONITOR.
[2018-11-13 20:00] VITALS: BP 134/90
[2018-11-13] MEDS: LORAZEPAM INJ 2 MG/ML VIAL IV PRN (22:53)
[2018-11-14] VITALS (8 sets, daily range): BP systolic 118–155; BP diastolic 72–96
[2018-11-14] MEDS: D5.45%NS/KCL 20MEQ 1,000 ML IV SCH ×3 (03:56→22:40)
[2018-11-14] MEDS: HYDROMORPHONE 1MG/1ML INJ IV PRN ×6 (03:57→22:15)
[2018-11-14] MEDS: LORAZEPAM INJ 2 MG/ML VIAL IV PRN ×4 (05:42→23:54)
[2018-11-14 06:40] LABS: ALANINE AMINOTRANSFERASE 77 IU/L (0-55); ALBUMIN 3.1 g/dL (3.5-5.0); ALBUMIN/GLOBULIN RATIO 0.8 (0.8-2.0); ALKALINE PHOSPHATASE 139 IU/L (40-150); ANION GAP 11.8 mmol/L (8-16); BLOOD UREA NITROGEN < 5 mg/dL (7-26); CALCIUM 8.7 mg/dL (8.4-10.2); CARBON DIOXIDE 23 mmol/L (22-29); CHLORIDE 101 mmol/L (98-107); CREATININE, SERUM 0.79 mg/dL (0.72-1.25); EST GLOMERULAR FILTRATION RATE > 60 ML/MIN (60-); GLUCOSE 98 mg/dL (74-118); LIPASE 186 U/L (8-78); POTASSIUM 3.8 mmol/L (3.5-5.1); SODIUM 132 mmol/L (136-145)
[2018-11-14 06:50] LABS: BASOPHILS # (AUTO) 0.1 (0.0-0.1); BASOPHILS % 0.6 % (0.0-1.0); EOSINOPHILS # (AUTO) 0.2 (0.0-0.4); EOSINOPHILS % 2.2 % (0.0-6.0); HEMATOCRIT 40.2 % (38.2-49.6); HEMOGLOBIN 12.8 g/dL (14.0-18.0); LYMPHOCYTES # (AUTO) 1.4 (1.0-3.2); MEAN CORPUSCULAR HEMOGLOBIN 27.4 pg (28-32); MEAN CORPUSCULAR HGB CONC 31.8 g/dL (31-35); MEAN CORPUSCULAR VOLUME 85.9 fL (81-99); MONOCYTES # (AUTO) 0.7 (0.2-0.8); MONOCYTES % 7.4 % (4.4-11.3); NEUTROPHILS % 74.4 % (38.7-80.0); PLATELET COUNT 277 x10e3/uL (140-360); RED BLOOD COUNT 4.68 x10e6/uL (4.3-5.7); RED CELL DISTRIBUTION WIDTH 14.4 % (11.7-14.4)
--- NOTE | 2018-11-14 07:00 | NUR ---
RECEIVED PATIENT IN BEDSIDE REPORT. PATIENT REPORTS PAIN IN UPPER ABDOMEN, RADIATING TO UPPER BACK, 8/10. WILL ADMINISTER PAIN MEDS WHEN DUE. NO OTHER S&S OF DISTRESS NOTED. AT BEDSIDE. R AC 20G IV IS ASYMPTOMATIC, INTACT, AND PATENT, RUNNING D51/2NS WITH 20 KCL AT 125 ML/HR. BED LOCKED IN LOWEST POSITION, SIDE RAILS UPX2, CALL LIGHT IN REACH.
[2018-11-14 07:04] LABS: BUN/CREATININE RATIO 6 (6-25)
[2018-11-14] MEDS: PANTOPRAZOLE 40 MG 10ML VIAL IV SCH (08:35)
--- NOTE | 2018-11-14 12:29 | NUR ---
GAVE PACKET OF INFORMATION WITH [employer] [employer] FOR ASSISTANCE WITH LOW TO NO INCOME TO PATIENT. RESOURCES THAT PATIENT MAY BE ABLE TO FOLLOW UP UPON DISCHARGE. PT EDUCATED ON EACH RESOURCE AND UNDERSTANDING HOW TO FOLLOW UP TO SEE IF QUALIFIED FOR EACH RESOURCE.
--- NOTE | 2018-11-14 15:54 | Consultation ---
DATE OF CONSULTATION: 11/14/2018 REASON FOR CONSULTATION: Chest pain. CHIEF COMPLAINT: Abdominal pain. HISTORY OF PRESENT ILLNESS: This is a 43-year-old male with history of chronic pancreatitis, hypertension, hyperlipidemia, and anxiety. The patient presents to [facility] ER with complaints of abdominal pain. However, when asked any other complaints, mentioned he did have some chest pain. Cardiology was consulted to evaluate the patient. The patient is seen in room and reports has been dealing with pancreatitis for many months. However, this past weekend, started to drink alcohol and since then has been having some abdominal discomfort bandlike. However, pain became worse, so therefore came to the ER for further evaluation. CT of the abdomen was done, showing some interstitial pancreatitis. Cardiac enzymes were noted, strongly negative times x2. Also on EKG noted with no acute changes, suggesting acute event of note. The patient underwent ischemic evaluation with heart catheterization in October 2012, showing normal coronaries. PAST MEDICAL HISTORY: 1. Pancreatitis. 2. Hypertension. 3. Hyperlipidemia. 4. Anxiety. 5. Alcohol use. PAST SURGICAL HISTORY: 1. Cholecystectomy in October 2018. 2. Left heart catheterization in 2012 showing normal coronaries. SOCIAL HISTORY: He is . He is a medical services manager. Positive alcohol use. Denies any tobacco use. FAMILY HISTORY: Mother is alive, apparently she has a history of hypertension and diabetes. Father is alive, age 74, history of CAD. HOME MEDICATIONS: Include: 1. Protonix. 2. Metoprolol 50 mg twice a day. ALLERGIES: NO KNOWN ALLERGIES. REVIEW OF SYSTEMS: GENERAL: Denies any recent weight changes, fevers, chills, night sweats. SKIN: No rashes or sores were reported. HEENT: Positive for nausea. Denies any vomiting. Denies any vision changes, earaches, epistaxis, sore throat, swollen neck. CARDIAC: Denies any exertional chest pain. Reports more of epigastric bandlike pain. Positive for dyspnea on exertion. Denies any orthopnea, PND or any lower extremity edema. RESPIRATORY: Denies any shortness of breath. Denies any hemoptysis, wheezing, or coughing. GI: Reports nausea. Denies any vomiting. Positive for diarrhea. Denies any hematemesis, melena. URINARY: Denies any frequency, urgency, dysuria, hematuria. VASCULAR: Denies lower extremity edema, claudication. MUSCULOSKELETAL: Denies any overt muscle weakness. However, positive for generalized joint pains and back pains. NEUROLOGIC: Denies any tingling, tremors, paralysis, blackout, or seizures. HEMATOLOGY: No anemia, easy bruising. ENDOCRINE: Denies any polyuria, polydipsia, or polyphagia. PHYSICAL EXAMINATION: VITAL SIGNS: Height 69 inches, weight 215 pounds, BMI 31, temperature 98.6, pulse 110, respiratory rate 18, blood pressure 126/79, pulse ox 96% on room air. GENERAL: Appears stated age, reliable informant. SKIN: No rashes or bruises noted. HEENT: Normocephalic. Pupils are equal and reactive. Extraocular movements intact. Trachea midline. No JVD. Oral mucosa pink. HEART: Regular rate and rhythm. No murmurs or clicks noted. PMI about 4th and 5th intercostal space. LUNGS: Bilateral breath sounds, clear to auscultation. No wheezing, no rales. ABDOMEN: Soft, tender throughout. Positive bowel sounds. No organomegaly noted. MUSCULOSKELETAL: Good muscle strength throughout. No lower extremity edema. VASCULAR: +2 bilateral radial pulses. +2 DP and PT pulses bilaterally. NEUROLOGIC: Cranial nerves II through XII seem intact. LABORATORY DATA: Sodium 139, potassium 4.0, BUN 7, calcium , troponin less than 0.001 x2. Triglycerides 89. Lipase initially 256, next 186. EKG showing sinus tach, heart rate [address] of the abdomen showed hepatomegaly, showing inflammation surrounding the pancreas suggestive of pancreatitis and also status post cholecystectomy. ASSESSMENT: 1. Pancreatitis. 2. Alcohol use. 3. Hyperlipidemia. 4. Anxiety. PLAN: 1. The patient presents with abdominal pain, bandlike, CT abdomen and pelvis suggesting pancreatitis. The patient with known history of pancreatitis. Agree with IV fluids and keeping patient n.p.o. Further management as per primary service. Regarding his chest pain, the patient reports more of a bandlike pain in the epigastric region related to his pancreatitis. No overt exertional chest pain. In fact, the patient had a heart catheterization in October 2012 showing normal coronaries. Cardiac enzymes are strongly negative x2 thus far. 2. We will continue medical therapy from a cardiac standpoint at this time. 3. Further recommendations as clinical course dictates. Thank you very much for this consult. Seen nd examined Care is discussed with patient and Dictated by Matthieu Peña, [employer] Catherine Hare MD DC/OLLIE /[id number]
--- NOTE | 2018-11-14 15:59 | NUR ---
Nutrition Screen Note RD Recommendation for Physician: -Advance diet as tolerated to low fat diet Plan of Care: RD following, monitoring for tolerance and adequacy, diet education Nutrition reason for involvement: Nutrition Risk Trigger MST Primary Diagnose(s): Pancreatitis PMH: pancreatitis Ht: 69in Wt: 215lb BMI: 31.7kg/m2 IBW: 160lb +/- 10% RD Assessment: (11/14) Chart reviewed. Labs and meds reviewed. 43yo M, who was admitted for pancreatitis. Lipase has trend down to 186 today. TG was high at 889. Visited pt in the room. IVF at 125mL/hr. Currently NPO. Pt reported having a couple beers last week. Currently NPO. No recent weight loss noted. RD provided information on low fat diet and pt was agreeable. All questions have been answered. Current Diet: NPO Malnutrition Evaluation (11/14) The patient does not meet criteria for a specified degree of malnutrition at this time. Will re-evaluate at follow-up as appropriate. Diet Education Needs Assessment: Diet education indicated, pt was agreeable. Learner(s): pt Time spent: 20minutes Barriers: No barriers identified. Cultural/Language Modifications: No cultural/language modifications noted. Pt speaks Mauritanian. Readiness: Pt eager to learn. Method: Handout, explanation Topics: Pancreatitis low fat diet Understanding/Compliance: Expect fair understanding/compliance from pt. Will benefit from reinforcement. Nutrition Care Level: low Signed: Rochelle Pena, MS, RD, LD
--- NOTE | 2018-11-14 17:30 | NUR ---
PATIENT REQUESTED NEW IV IN L ARM INSTEAD OF RIGHT. REMOVED R AC 20G IV. CATHETER TIP INTACT. PRESSURE DRESSING APPLIED. NEW 20G IV PLACED IN L FA, FIRST ATTEMPT, FLUSHED, BLOOD RETURN. SECURED WITH TEGADERM. PATIENT TOLERATED WELL. RECONNECTED IV FLUIDS AT 125ML/HR.
--- NOTE | 2018-11-14 19:04 | NUR ---
PT IS RESTING IN BED WITH HIS AT BEDSIDE. RESPIRATION IS EVEN AND UNLABORED, NO DISTRESS NOTED. BED IN THE LOWEST POSITION, LOCKED, AND CALL LIGHT WITHIN REACH. WILL CONTINUE TO MONITOR.
[2018-11-15] VITALS (8 sets, daily range): BP systolic 119–148; BP diastolic 70–99
[2018-11-15] MEDS: HYDROMORPHONE 1MG/1ML INJ IV PRN ×7 (01:19→20:53)
[2018-11-15] MEDS: LORAZEPAM INJ 2 MG/ML VIAL IV PRN ×3 (06:01→18:15)
[2018-11-15] MEDS: D5.45%NS/KCL 20MEQ 1,000 ML IV SCH ×3 (06:01→22:49)
[2018-11-15 06:11] LABS: AMYLASE 35 U/L (25-125); LIPASE 171 U/L (8-78)
--- NOTE | 2018-11-15 07:00 | NUR ---
RECEIVED AM REPORT FROM NURSE, MORNING ROUNDS DONE. PT IS ALERT RESTING IN BED, NO S/S OF DISTRESS. CALL LIGHT WITHIN REACH, INSTRUCTED TO CALL NURSE FOR HELP. IS AT THE BEDSIDE.
[2018-11-15] MEDS: PANTOPRAZOLE 40 MG 10ML VIAL IV SCH (09:10)
[2018-11-15] MEDS: PROMETHAZINE 12.5MG/ NACL 0.9% 12.5 MG/50 ML BAG IV PRN ×2 (11:15→18:15)
--- NOTE | 2018-11-15 19:21 | NUR ---
PT IS RESTING IN BED WITH HIS AT BEDSIDE. RESPIRATION IS EVEN AND UNLABORED, NO DISTRESS NOTED. BED IN THE LOWEST POSITION, LOCKED, BED ALARM ON, AND CALL LIGHT WITHIN REACH. WILL CONTINUE TO MONITOR.
[2018-11-16] VITALS (8 sets, daily range): BP systolic 111–148; BP diastolic 79–91
[2018-11-16] MEDS: HYDROMORPHONE 1MG/1ML INJ IV PRN ×8 (00:11→23:25)
[2018-11-16] MEDS: LORAZEPAM INJ 2 MG/ML VIAL IV PRN ×4 (00:52→20:45)
[2018-11-16] MEDS: PROMETHAZINE 12.5MG/ NACL 0.9% 12.5 MG/50 ML BAG IV PRN ×4 (00:56→20:45)
[2018-11-16 05:43] LABS: BASOPHILS # (AUTO) 0.1 (0.0-0.1); BASOPHILS % 0.6 % (0.0-1.0); EOSINOPHILS # (AUTO) 0.1 (0.0-0.4); EOSINOPHILS % 1.5 % (0.0-6.0); HEMATOCRIT 39.2 % (38.2-49.6); HEMOGLOBIN 12.1 g/dL (14.0-18.0); LYMPHOCYTES # (AUTO) 1.6 (1.0-3.2); LYMPHOCYTES % 18.6 % (18.0-39.1); MEAN CORPUSCULAR HGB CONC 30.9 g/dL (31-35); MEAN CORPUSCULAR VOLUME 90.7 fL (81-99); MONOCYTES # (AUTO) 0.5 (0.2-0.8); NEUTROPHILS # (AUTO) 6.2 (2.1-6.9); NEUTROPHILS % 72.6 % (38.7-80.0); PLATELET COUNT 240 x10e3/uL (140-360); RED BLOOD COUNT 4.32 x10e6/uL (4.3-5.7); RED CELL DISTRIBUTION WIDTH 14.7 % (11.7-14.4)
[2018-11-16 06:01] LABS: ANION GAP 13.2 mmol/L (8-16); BLOOD UREA NITROGEN < 5 mg/dL (7-26); BUN/CREATININE RATIO 6 (6-25); CALCIUM 8.5 mg/dL (8.4-10.2); CARBON DIOXIDE 26 mmol/L (22-29); CHLORIDE 101 mmol/L (98-107); EST GLOMERULAR FILTRATION RATE > 60 ML/MIN (60-); GLUCOSE 92 mg/dL (74-118); LIPASE 162 U/L (8-78); POTASSIUM 4.2 mmol/L (3.5-5.1); SODIUM 136 mmol/L (136-145)
--- NOTE | 2018-11-16 06:54 | NUR ---
RECEIVED PATIENT RESTING IN BED. NO ACUTE DISTRESS NOTED. RESPIRATIONS EVEN AND UNLABORED. PATIENT STATES PAIN IS 8/10 MEDICATED FOR PAIN AT 0618. CALL LIGHT WITHIN REACH. BED IN THE LOWEST POSITION.
[2018-11-16] MEDS: D5.45%NS/KCL 20MEQ 1,000 ML IV SCH ×2 (07:30→16:25)
[2018-11-16] MEDS: PANTOPRAZOLE 40 MG 10ML VIAL IV SCH (08:01)
[2018-11-16] MEDS: ONDANSETRON HCL INJ 2MG/ML 2ML 2 MG/ML VIAL IV PRN (12:38)
--- NOTE | 2018-11-16 17:59 | NUR ---
Patient c/o excruciating pain and requested for addition pain medication. Pain level 10 on 0-10 scale on lower abdomen per patient's report. Paged Dr. Sol regarding orders. Awaiting for call back.
--- NOTE | 2018-11-16 18:20 | NUR ---
Patient awake, lying in bed with eyes open. Respiration even and unlabored without SOB. Dr. Sol called back and denies patient's request for additional pain medication. Information relayed to the patient. Patient verbalized understanding. Call light in reach.
--- NOTE | 2018-11-16 19:28 | NUR ---
Awake, alert. Respiration even and unlabored without SOB. Report given to night nurse. Call light in reach.
--- NOTE | 2018-11-16 20:56 | NUR ---
RECEIVED PT IN BED AOX3 .C/O PAIN AND GIVEN ORDERED PAIN MEDICATION .CALL LIGHT WITH IN REACH.CONTINUE TO MONITOR
[2018-11-17] VITALS (8 sets, daily range): BP systolic 135–157; BP diastolic 76–106
[2018-11-17] MEDS: LORAZEPAM INJ 2 MG/ML VIAL IV PRN ×4 (02:00→21:45)
[2018-11-17] MEDS: PROMETHAZINE 12.5MG/ NACL 0.9% 12.5 MG/50 ML BAG IV PRN ×4 (02:00→21:45)
[2018-11-17] MEDS: D5.45%NS/KCL 20MEQ 1,000 ML IV SCH ×2 (02:40→09:09)
[2018-11-17] MEDS: HYDROMORPHONE 1MG/1ML INJ IV PRN ×2 (02:41→09:09)
[2018-11-17 06:18] LABS: ANION GAP 10.7 mmol/L (8-16); BLOOD UREA NITROGEN < 5 mg/dL (7-26); CALCIUM 8.2 mg/dL (8.4-10.2); CARBON DIOXIDE 27 mmol/L (22-29); CHLORIDE 105 mmol/L (98-107); CREATININE, SERUM 0.77 mg/dL (0.72-1.25); EST GLOMERULAR FILTRATION RATE > 60 ML/MIN (60-); GLUCOSE 83 mg/dL (74-118); LIPASE 183 U/L (8-78); POTASSIUM 3.7 mmol/L (3.5-5.1); SODIUM 139 mmol/L (136-145)
[2018-11-17 06:29] LABS: BUN/CREATININE RATIO 6 (6-25)
--- NOTE | 2018-11-17 06:37 | NUR ---
PT C/O PAIN DURING THE SHIFT AND GIVEN DILAUDID Q3HRS ATIVAN AND PHENERGAN GIVEN Q6HRS .CALL LIGHT WITH IN REACH .CONTINUE TO MONITOR
--- NOTE | 2018-11-17 07:18 | NUR ---
BEDSIDE REPORT GIVEN TO THE ONCOMING NURSE
[2018-11-17] MEDS: PANTOPRAZOLE 40 MG 10ML VIAL IV SCH ×3 (08:21→19:45)
[2018-11-17] MEDS ORDERED: HYDROMORPHONE 2MG/ML 2 MG/ML ML IV PRN (10:30)
[2018-11-17] MEDS ORDERED: HYDROMORPHONE 1MG/1ML INJ IV PRN (10:45)
[2018-11-17] MEDS: LACTATED RINGER'S 1,000 ML IV SCH ×3 (12:13→20:24)
[2018-11-17] MEDS: HYDROMORPHONE 2MG/ML 2 MG/ML ML IV PRN ×4 (12:14→23:56)
[2018-11-17] MEDS ORDERED: CITRATE OF MAGNESIA 300ML BOTTLE PO ONE (13:00)
--- NOTE | 2018-11-17 15:32 | Diagnostic Imaging Report ---
Chest, 1 view, 11/17/2018. History: PICC placement. Comparison: 11/13/2018. Findings: The cardiomediastinal silhouette and pulmonary vasculature are within normal limits for a portable exam. Linear opacity is present in left lung base. There is no focal consolidation or pleural effusion. Right upper extremity PICC terminates in the region of the proximal SVC. There are no acute osseous or soft tissue abnormalities. Impression: Left basilar atelectasis. PICC in adequate position. Signed by: Ernst Holloway on 11/17/2018 3:29 PM
[2018-11-17] MEDS ORDERED: CENTRAL TPN FORMULA 1 BAG IV SCH (20:00)
--- NOTE | 2018-11-17 20:00 | NUR ---
TPN RUNNING TO RIGHT UPPER ARM PICC LINE.
[2018-11-18] VITALS (7 sets, daily range): BP systolic 134–148; BP diastolic 84–94
--- NOTE | 2018-11-18 00:14 | NUR ---
Aaox3.room air.ambulates and voided.family member at bed side.administering pain medicine as per doctors order.bed locked and in lowest position.phone and call light within reach.instructed to call for assistance as needed.verbalized understanding.
[2018-11-18] MEDS: LACTATED RINGER'S 1,000 ML IV SCH ×7 (01:00→23:30)
--- NOTE | 2018-11-18 02:40 | NUR ---
WAS DOING ROUNDS .
[2018-11-18] MEDS: HYDROMORPHONE 2MG/ML 2 MG/ML ML IV PRN ×7 (03:10→23:19)
[2018-11-18] MEDS: PROMETHAZINE 12.5MG/ NACL 0.9% 12.5 MG/50 ML BAG IV PRN ×4 (04:50→23:55)
[2018-11-18] MEDS: LORAZEPAM INJ 2 MG/ML VIAL IV PRN ×4 (05:00→23:55)
--- NOTE | 2018-11-18 07:11 | NUR ---
BED SIDE SHIFT REPORT GIVEN TO THE ONCOMING HELLEN GODWIN.STABLE CONDITION. Addendum: 11/18/18 at 0722 by Jerod Jarrett RN HELLEN THOMAS
--- NOTE | 2018-11-18 07:21 | NUR ---
RECEIVED PATIENT IN BEDSIDE REPORT. PATIENT RESTING AT THIS TIME. REQUESTING PAIN MEDS, BUT NOT DUE UNTIL 909. OTHERWISE, NO S&S OF DISTRESS NOTED. TPN @ 60 ML/HR, LR @ 250 ML/HR. BED LOCKED IN LOWEST POSITION, SIDE RAILS UPX2, CALL LIGHT IN REACH.
--- NOTE | 2018-11-18 13:16 | Diagnostic Imaging Report ---
CT of the abdomen and pelvis, with contrast, 11/18/2018. History: Pancreatitis. Comparison: 11/13/2018. Technique: Multidetector CT scanning of the abdomen and pelvis was performed from the level of the lung bases to the inferior pubic rami after intravenous administration of contrast. Coronal and sagittal multiplanar reformations were obtained. RADIATION DOSE: Total DLP: 881 mGy*cm Dose modulation, iterative reconstruction, and/or weight based adjustment of the mA/kV was utilized to reduce the radiation dose to as low as reasonably achievable. Discussion: LUNG BASES: No visualized abnormalities. ABDOMEN: There is normal enhancement of the pancreas. Peripancreatic fat stranding has decreased slightly. There is no pancreatic ductal dilatation. A 1.7 x 2.7 cm oval low density structure is seen anterior to the pancreatic body measuring 18 Hounsfield units in density. Cholecystectomy clips are present. The liver is enlarged. The biliary tree, spleen, adrenal glands, and kidneys are normal. The hepatic vein, portal vein, and splenic vein are patent. The abdominal aorta is within normal limits for size. The stomach, small bowel, and large bowel are unremarkable. There is no bowel dilatation. There is no evidence of adenopathy or free fluid. PELVIS: The bladder, prostate, and seminal vesicles are normal in appearance. There is no evidence of free fluid or adenopathy. Bilateral fat-containing inguinal hernias are present. BONES AND SOFT TISSUES: Degenerative changes are present throughout the lumbar spine without evidence of lytic or sclerotic lesion. IMPRESSION: 1. Decreased peripancreatic fat stranding, with small fluid collection developing anterior to the body of the pancreas which may present a developing pseudocyst. No evidence of pancreatic necrosis. 2. Hepatomegaly. 3. Status post cholecystectomy. Otherwise unremarkable exam. Signed by: Ernst Holloway on 11/18/2018 1:12 PM
--- NOTE | 2018-11-18 13:45 | NUR ---
PAGED MD PICHARDO, COVERING FOR MD Bradford JOHNSON, CONCERNING TPN ORDER.
--- NOTE | 2018-11-18 13:59 | NUR ---
MD PICHARDO CALLED BACK, ORDERS TO CONTINUE TPN PREVIOUSLY ORDERED.
--- NOTE | 2018-11-18 17:54 | NUR ---
PATIENT REQUESTED L WRIST 20G IV BE REMOVED. CATHETER TIP INTACT. PRESSURE DRESSING APPLIED.
[2018-11-18] MEDS ORDERED: IOPAMIDOL 370 MG/ML 200 ML INFUS..BTL INJ ONE (18:22)
[2018-11-18] MEDS ORDERED: SODIUM CHLORIDE 0.9% 50ML 50 ML ONE (18:22)
--- NOTE | 2018-11-18 18:41 | NUR ---
Nutrition Intervention Note RD Recommendation(s) for Physician: - Current standard TPN (30% dextrose, 10% AA) @ 60 mL/hr, providing 1440 ml total volume/day, 216 g dextrose, 72 g AA. total of 1022kcal (Meets 64% of his est calorie and 100% est protein needs.) - Rec increasing standard TPN (30% dextrose, 10% AA) to 70mL/hr 1193kcal, 252g dextrose, 84g protein to more adequately meet his needs. - BMP, Phos, Mag repeat daily; prealbumin, LFT, TG monitor weekly - BG check every 6 hr with corrective dose insulin - Continue with TPN per MD until diet is advanced and intake >50% - Advance diet as tolerated to low fat soft Plan of Care: RD following, monitoring for tolerance and adequacy, PN Nutrition reason for involvement: New PN RD Assessment (11/18) Pt was discussed during AM rounds. Pt was unable to tolerate clear liquid. TPN was started on 11/17/2018. No other labs drawn but glucose level. Glucose WNL. Lipase was still elevated at 183. Plan to continue TPN. (11/14) Chart reviewed. Labs and meds reviewed. 43yo M, who was admitted for pancreatitis. Lipase has trend down to 186 today. TG was high at 889. Visited pt in the room. IVF at 125mL/hr. Currently NPO. Pt reported having a couple beers last week. Currently NPO. No recent weight loss noted. RD provided information on low fat diet and pt was agreeable. All questions have been answered. Principal Problems/Diagnoses: pancreatitis PMH: pancreatitis GI: abdomen soft, non-tender, round, flatus present Skin: intact Labs: reviewed Meds: Dilaudid, lactated ringer Ht: 69in Wt: 215lb BMI: 31.7kg/m2 IBW: 160lb +/- 10% Malnutrition Evaluation (11/14/2018) The patient does not meet criteria for a specified degree of malnutrition at this time. Will re-evaluate at follow-up as appropriate. Nutrition Prescription (Diet Order): NPO Estimated Nutritional Needs: Calories: 1606 1825kcal(22-25kcal) Weight used: IBW Protein: 73 110g (1.0-1.5g/kg/d) Weight used: IBW Diet Adequacy: TPN meets 64% of his est calorie and 100% est protein needs. Diet Education Needs Assessment: (11/14) Diet education indicated, pt was agreeable. Learner(s): pt Time spent: 20minutes Barriers: No barriers identified. Cultural/Language Modifications: No cultural/language modifications noted. Pt speaks Beninese. Readiness: Pt eager to learn. Method: Handout, explanation Topics: Pancreatitis low fat diet Understanding/Compliance: Expect fair understanding/compliance from pt. Will benefit from reinforcement. Nutrition Care Level: high Nutrition Diagnosis: Inadequate oral intake related to NPO x 5 days secondary to pancreatitis as evidenced by pt requiring PN as main source of nutrition. Goal: Patient will meet 75-100% of estimated needs by follow up Progress: Progressing Interventions: Composition, Rate, Route, IVF Monitoring/Evaluation: Total energy intake, Total protein intake, Formula/Solution, IVF, Weight change Signed: Rochelle Pena MS, RD, LD
--- NOTE | 2018-11-18 19:00 | NUR ---
Patient visited in room during nursing rounds. Patient alert and oriented x3. PICC line on CLAIR and receiving TPN at 60ml/hr on one line and LR at 250ml/hr. Pt ambulatory in room prn. at bedside. Pt with intermittent pain on upper abdomen and being medicated accordingly. Pt is NPO except ice chips per MD order. Call joy within reach. Will monitor pt closely.
[2018-11-18] MEDS ORDERED: CENTRAL TPN FORMULA 1 BAG IV SCH (20:00)
[2018-11-19] VITALS (7 sets, daily range): BP systolic 136–168; BP diastolic 89–105
[2018-11-19] MEDS: LACTATED RINGER'S 1,000 ML IV SCH ×3 (01:00→09:32)
--- NOTE | 2018-11-19 01:00 | NUR ---
Dr. Salvador Sol came and visited pt in room. MD explained plan of care to patient and informed pt lipase levels will be checked in AM and he will order laxative for patient.
[2018-11-19] MEDS ORDERED: MAGNESIUM HYDROXIDE 30 ML UDC PO ONE (01:15)
[2018-11-19] MEDS: HYDROMORPHONE 2MG/ML 2 MG/ML ML IV PRN ×7 (03:12→22:08)
[2018-11-19] MEDS: PROMETHAZINE 12.5MG/ NACL 0.9% 12.5 MG/50 ML BAG IV PRN ×3 (06:00→18:47)
[2018-11-19] MEDS: LORAZEPAM INJ 2 MG/ML VIAL IV PRN ×3 (06:00→19:05)
[2018-11-19 06:38] LABS: BASOPHILS % 0.7 % (0.0-1.0); EOSINOPHILS # (AUTO) 0.2 (0.0-0.4); EOSINOPHILS % 2.9 % (0.0-6.0); HEMATOCRIT 35.5 % (38.2-49.6); HEMOGLOBIN 10.9 g/dL (14.0-18.0); LYMPHOCYTES # (AUTO) 1.4 (1.0-3.2); LYMPHOCYTES % 26.4 % (18.0-39.1); MEAN CORPUSCULAR HEMOGLOBIN 28.2 pg (28-32); MEAN CORPUSCULAR HGB CONC 30.7 g/dL (31-35); MEAN CORPUSCULAR VOLUME 91.7 fL (81-99); MONOCYTES # (AUTO) 0.5 (0.2-0.8); MONOCYTES % 9.9 % (4.4-11.3); NEUTROPHILS # (AUTO) 3.3 (2.1-6.9); NEUTROPHILS % 59.9 % (38.7-80.0); PLATELET COUNT 255 x10e3/uL (140-360); RED BLOOD COUNT 3.87 x10e6/uL (4.3-5.7); RED CELL DISTRIBUTION WIDTH 14.8 % (11.7-14.4)
[2018-11-19 06:56] LABS: ALANINE AMINOTRANSFERASE 23 IU/L (0-55); ALBUMIN 2.9 g/dL (3.5-5.0); ALBUMIN/GLOBULIN RATIO 0.8 (0.8-2.0); ALKALINE PHOSPHATASE 110 IU/L (40-150); AMYLASE 24 U/L (25-125); BLOOD UREA NITROGEN < 5 mg/dL (7-26); CALCIUM 9.1 mg/dL (8.4-10.2); CARBON DIOXIDE 29 mmol/L (22-29); CHLORIDE 103 mmol/L (98-107); CREATININE, SERUM 0.75 mg/dL (0.72-1.25); EST GLOMERULAR FILTRATION RATE > 60 ML/MIN (60-); GLUCOSE 101 mg/dL (74-118); LIPASE 40 U/L (8-78); SODIUM 140 mmol/L (136-145)
[2018-11-19 07:00] LABS: BUN/CREATININE RATIO 7 (6-25)
--- NOTE | 2018-11-19 07:00 | NUR ---
RECEIVED PATIENT IN BEDSIDE REPORT. PATIENT IS SITTING IN CHAIR AT BEDSIDE, A&OX3. PAIN REPORTED 09/12. NO OTHER S&S OF DISTRESS NOTED. BED LOCKED IN LOWEST POSITION, SIDE RAILS UPX2, CALL LIGHT IN REACH.
[2018-11-19] MEDS: PANTOPRAZOLE 40 MG 10ML VIAL IV SCH (09:23)
--- NOTE | 2018-11-19 12:55 | NUR ---
PATIENT STATED HIS ANXIETY IS WORSE TODAY, CAUSING HIM TO FEEL SOB. PATIENT REQUESTED O2 TO HELP CALM HIM DOWN. O2 STARTED AT 2L VIA NC.
--- NOTE | 2018-11-19 13:58 | Progress Note ---
DATE: Internal Medicine Progress Note SUBJECTIVE: The patient is doing well except for some abdominal pain. PHYSICAL EXAMINATION: VITAL SIGNS: Blood pressure 140/89, temperature 96.0, heart rate 76 per minute, respiratory rate 18 per minute, oxygen saturation 98%. HEART: Showed regular rhythm. Normal S1 and S2 sound. LUNGS: Clear bilaterally. ABDOMEN: Soft. No distention. LABORATORY DATA: On the BMP; sodium 140, potassium 4.0, chloride 103, CO2 of 29, BUN 5, creatinine 0.75, glucose 101. On the CBC; white count 5.46, hemoglobin 10.9, hematocrit 35.5, platelet count 255,000. PT 13.3, INR 0.96, PTT 37.5. AST 23, ALT 23, total bilirubin 0.4, alkaline phosphatase 110. FINAL IMPRESSION: Acute pancreatitis secondary to alcohol abuse. PLAN OF TREATMENT: Treatment continue with Ringer's lactate. Continue TPN. Continue Zofran 4 mg IV q.4 hours as needed, Protonix 40 mg daily, lorazepam 0.5 mg q.6 hours as needed, promethazine 12.5 mg IV q.6 hours as needed, Dilaudid 2 mg IV q.3 hours as needed. Continue monitoring CMP and lipase level. MD GERDA Yin/OLLIE /[id number]
[2018-11-19] MEDS: DEXTROSE 10% 1,000 ML IV SCH (15:30)
--- NOTE | 2018-11-19 15:59 | Progress Note ---
DATE: Lipase level is 40, which is normal. Dr. Yariel Sol has seen the patient also for followup from a Gastroenterology point of view, one might be able to start feeding as well. MD GERDA Yin/OLLIE /[id number]
--- NOTE | 2018-11-19 19:30 | NUR ---
Patient visited in room during nursing rounds. Patient alert and oriented x3. PICC line on CLAIR and receiving Dextrose 10% at 75ml/hr. Pt ambulatory in room prn. at bedside. Pt with intermittent pain on upper abdomen and being medicated accordingly. Pt is on Full Liquid diet per MD order. Call joy within reach. Will monitor pt closely.
--- NOTE | 2018-11-19 23:00 | NUR ---
Called and spoke with Dr. Fitzgerald and informed pt still having pain (on upper abd) after Dilaudid given at 2208. MD aware and stated pt can have alternative pain med ([place] 5/325mg PO Q4hr prn). stated that Dilaudid can't be increased any further to prevent possible kidney or respiratory failure.
[2018-11-19] MEDS: HYDROCODONE/APAP 5MG-325MG TAB PO PRN (23:28)
[2018-11-20] VITALS (7 sets, daily range): BP systolic 127–145; BP diastolic 84–99
[2018-11-20] MEDS: HYDROMORPHONE 2MG/ML 2 MG/ML ML IV PRN ×7 (01:18→21:30)
[2018-11-20] MEDS: LORAZEPAM INJ 2 MG/ML VIAL IV PRN ×2 (01:24→07:50)
[2018-11-20] MEDS: HYDROCODONE/APAP 5MG-325MG TAB PO PRN ×2 (05:42→10:14)
[2018-11-20] MEDS: DEXTROSE 10% 1,000 ML IV SCH ×2 (05:42→20:00)
[2018-11-20 06:37] LABS: ALANINE AMINOTRANSFERASE 20 IU/L (0-55); ALBUMIN/GLOBULIN RATIO 0.8 (0.8-2.0); ALKALINE PHOSPHATASE 101 IU/L (40-150); ANION GAP 12.1 mmol/L (8-16); BLOOD UREA NITROGEN < 5 mg/dL (7-26); CALCIUM 8.9 mg/dL (8.4-10.2); CARBON DIOXIDE 30 mmol/L (22-29); CHLORIDE 100 mmol/L (98-107); CREATININE, SERUM 0.85 mg/dL (0.72-1.25); EST GLOMERULAR FILTRATION RATE > 60 ML/MIN (60-); GLUCOSE 127 mg/dL (74-118); LIPASE 35 U/L (8-78); POTASSIUM 4.1 mmol/L (3.5-5.1); SODIUM 138 mmol/L (136-145)
[2018-11-20 06:54] LABS: BUN/CREATININE RATIO 6 (6-25)
[2018-11-20] MEDS: PROMETHAZINE 12.5MG/ NACL 0.9% 12.5 MG/50 ML BAG IV PRN ×3 (07:51→21:30)
[2018-11-20] MEDS: FENOFIBRATE 145 MG TAB PO SCH (08:32)
[2018-11-20] MEDS: PANTOPRAZOLE 40 MG 10ML VIAL IV SCH (08:32)
[2018-11-20] MEDS: AMLODIPINE BESYLATE 5 MG TAB PO SCH (08:32)
[2018-11-20] MEDS ORDERED: BUSPIRONE HCL 5 MG TAB PO PRN (12:15)
--- NOTE | 2018-11-20 14:18 | Progress Note ---
DATE: Internal Medicine Progress Note SUBJECTIVE: The patient was complaining of abdominal pain. He is taking Dilaudid and [place], alternating one over each other. I told him that it was not of ASA combination. After talking with the patient, he preferred to [place], so I am going to discontinue [place]. OBJECTIVE: VITAL SIGNS: Blood pressure 131/99, temperature 96.9, heart rate 90 per minute, respiratory rate 18 per minute, and oxygen saturation 98%. ABDOMEN: The abdomen is not distended, soft. LABORATORY DATA: On the BMP, sodium 138, potassium 4.1, chloride 100, CO2 of 30, BUN 5, creatinine 0.85, and glucose 127. On the CBC, white blood count 5.46, hemoglobin 10.9, hematocrit 35.5, and platelet count 255,000. PT 13.3, INR 0.96, PTT 27.5. AST 18 and ALT 20, total bilirubin 0.4, alkaline phosphatase 101. IMPRESSION: 1. Acute pancreatitis. 2. Obesity. 3. Chronic pain syndrome. 4. Hypertension. PLAN: We are going to discontinue [place]. Continue Dilaudid 2 mg IV q.3 hours as needed, amlodipine 5 mg daily, Protonix 40 mg daily, Zofran 4 mg IV q.4 hours as needed, D10 at 75 mL an hour, [place] 1 tablet q.4 hours as needed going to be discontinued, fenofibrate 145 mg daily. We are going to change the lorazepam to p.o. also. We are going to continue monitoring the lipase and the CMP. Diet as tolerated. MD GERDA Yin/OLLIE /[id number]
--- NOTE | 2018-11-20 15:40 | NUR ---
after recvd Buspirone PO patient stated he is itching every where and red rashes noted on face, notified Dr Fitzgerald, new order recvd to d/c buspirone and Benadryl 25mg PO Q4 PRN
[2018-11-20] MEDS ORDERED: DIPHENHYDRAMINE HCL 25 MG CAP PO PRN (15:45)
--- NOTE | 2018-11-20 19:10 | NUR ---
Patient visited in room during nursing rounds. Patient alert and oriented x3. PICC line on CLAIR and receiving Dextrose 10% at 75ml/hr. Pt ambulatory in room prn. at bedside. Pt with intermittent pain on upper abdomen and being medicated accordingly. Pt still on Full Liquid diet and currently unable to tolerate higher form of diet (e.g. Soft diet) due to nausea and vomiting. Call joy within reach. Will monitor pt closely.
[2018-11-21] VITALS: BP 134/85
--- NOTE | 2018-11-21 02:00 | NUR ---
Dr. Yariel Sol came and saw pt. aware of pt condition and informed pt he will order Reglan for pt.
[2018-11-21] MEDS ORDERED: ONDANSETRON HCL INJ 2MG/ML 2ML 2 MG/ML VIAL IV PRN (02:15)
[2018-11-21] MEDS: HYDROMORPHONE 2MG/ML 2 MG/ML ML IV PRN ×3 (02:18→09:33)
[2018-11-21 04:00] VITALS: BP 145/82
[2018-11-21] MEDS ORDERED: METOCLOPRAMIDE HCL 10 MG/2ML VIAL IV SCH (06:00)
[2018-11-21 07:51] VITALS: BP 115/72
--- NOTE | 2018-11-21 07:57 | NUR ---
The pt. is in bed awake and alert without complaints.
[2018-11-21] MEDS: FENOFIBRATE 145 MG TAB PO SCH (09:28)
[2018-11-21] MEDS: PANTOPRAZOLE 40 MG 10ML VIAL IV SCH (09:28)
[2018-11-21] MEDS: AMLODIPINE BESYLATE 5 MG TAB PO SCH (09:28)
[2018-11-21] MEDS ORDERED: TYLENOL WITH C1 EACH PO (10:25)
[2018-11-21] MEDS ORDERED: PANTOPRAZOLE SO40 MG PO ×2 (10:27→10:28)
[2018-11-21] MEDS ORDERED: ZOFRAN4 MG PO (10:29)
[2018-11-21] MEDS ORDERED: PANTOPRAZOLE SOD 40 MG TABEC PO SCH (10:30)
[2018-11-21] MEDS ORDERED: METOCLOPRAMIDE HCL 10 MG TAB PO PRN (10:30)
--- NOTE | 2018-11-21 10:30 | NUR ---
Dr. Bradford Sol visited and discharge orders received and the pt. is aware of plans. The pt. is to complete current iv fluids and then discharge home.
[2018-11-21 10:59] VITALS: BP 115/72
[2018-11-21 11:41] VITALS: BP 131/85
--- NOTE | 2018-11-21 12:00 | NUR ---
The pt's PICC line was remove and a small pressure dressing applied with instructions to the pt. to leave the dressing intact for 2-3 hours. He was provided prescriptions and follow up information and was escorted to private care in stable condition for transport home.
[2018-11-21] MEDS ORDERED: METOPROLOL TARTRATE 50 MG TAB PO SCH (17:00)
[2018-11-21] MEDS ORDERED: AMITRIPTYLINE HCL 25 MG TAB PO SCH (17:00)
== END 2018-11-21 12:20 | disposition home or self-care (01) | DRG 440 ==
LOC: ER 05:23 → ERHOLD 10:49 → MED/SURG3 11:41
PROC: 02HV33Z Insertion of Infusion Device into Superior Vena Cava, Percutaneous Approach (ICD-10-PCS; principal; 2018-11-17)
DX: K85.20 Alcohol induced acute pancreatitis without necrosis or infection (principal); I10 Essential (primary) hypertension; E78.5 Hyperlipidemia, unspecified; F41.9 Anxiety disorder, unspecified; F10.20 Alcohol dependence, uncomplicated; Z90.49 Acquired absence of other specified parts of digestive tract; G89.4 Chronic pain syndrome; E66.9 Obesity, unspecified; Z68.34 Body mass index [BMI] 34.0-34.9, adult; E03.9 Hypothyroidism, unspecified; K76.0 Fatty (change of) liver, not elsewhere classified
CPT/HCPCS: 36415; 36569; 71045; 74177; 80048; 80053; 80061; 80307; 80320; 81001; 82150; 82550; 82553; 82948; 83690; 84478; 84484; 85025; 85610; 85730; 93005; 96374; 99284; J1170; J1885; J2060; J2405; J2550; J2765; J7030; J7121; Q9967

== ENCOUNTER 2020-01-02 01:24 | Emergency (ER) | payer SELFPAY ==
[~2020-01-02] VITALS: Ht 175.3 cm; Wt 104.3 kg
[~2020-01-02 01:24] MED LIST changes: +ELAVIL PO; +METOPROLOL TART50 MG PO; +OMEPRAZOLE40 MG PO; +REGLAN10 MG PO; +ZOFRAN4 MG PO
[2020-01-02] MEDS ORDERED: PANTOPRAZOLE 40 MG 10ML VIAL IV STA (01:39)
[2020-01-02] MEDS ORDERED: MULTIVITAMINS- 12 INJECTION 10 ML, FOLIC ACID MDV 5 MG, THIAMINE HCL INJ 100 MG in SODI... IV ONE (01:45)
[2020-01-02 01:47] LABS: BASOPHILS # (AUTO) 0.1 (0.0-0.1); BASOPHILS % 1.4 % (0.0-1.0); EOSINOPHILS # (AUTO) 0.1 (0.0-0.4); HEMATOCRIT 39.5 % (38.2-49.6); HEMOGLOBIN 11.9 g/dL (14.0-18.0); LYMPHOCYTES # (AUTO) 2.1 (1.0-3.2); LYMPHOCYTES % 42.1 % (18.0-39.1); MEAN CORPUSCULAR HEMOGLOBIN 23.1 pg (28-32); MEAN CORPUSCULAR HGB CONC 30.1 g/dL (31-35); MEAN CORPUSCULAR VOLUME 76.7 fL (81-99); MONOCYTES # (AUTO) 0.3 (0.2-0.8); MONOCYTES % 6.7 % (4.4-11.3); NEUTROPHILS # (AUTO) 2.5 (2.1-6.9); NEUTROPHILS % 48.6 % (38.7-80.0); PLATELET COUNT 423 x10e3/uL (140-360); RED BLOOD COUNT 5.15 x10e6/uL (4.3-5.7); RED CELL DISTRIBUTION WIDTH 19.9 % (11.7-14.4)
[2020-01-02 02:04] LABS: AMYLASE 30 U/L (25-125); LIPASE 52 U/L (8-78)
[2020-01-02 02:07] LABS: ALANINE AMINOTRANSFERASE 66 IU/L (0-55); ALBUMIN 4.2 g/dL (3.5-5.0); ALBUMIN/GLOBULIN RATIO 1.1 (0.8-2.0); ALKALINE PHOSPHATASE 92 IU/L (40-150); ANION GAP 18.8 mmol/L (8-16); BLOOD UREA NITROGEN 12 mg/dL (7-26); BUN/CREATININE RATIO 10 (6-25); CALCIUM 8.2 mg/dL (8.4-10.2); CARBON DIOXIDE 27 mmol/L (22-29); CHLORIDE 103 mmol/L (98-107); CREATININE, SERUM 1.15 mg/dL (0.72-1.25); EST GLOMERULAR FILTRATION RATE > 60 ML/MIN (60-); GLUCOSE 81 mg/dL (74-118); POTASSIUM 3.8 mmol/L (3.5-5.1); SALICYLATE < 5.0 mg/dL (0-30); SODIUM 145 mmol/L (136-145)
[2020-01-02 04:53] LABS: AMPHETAMINES SCREEN,URINE NEGATIVE (NEGATIVE); BENZODIAZEPINES SCREEN,URINE POSITIVE (NEGATIVE); BILIRUBIN,URINE NEGATIVE (NEGATIVE); CLARITY,URINE CLEAR (CLEAR); COLOR,URINE YELLOW (YELLOW); KETONES,URINE NEGATIVE (NEGATIVE); LEUKOCYTE ESTERASE ,URINE NEGATIVE (NEGATIVE); NITRITE,URINE NEGATIVE (NEGATIVE); PHENCYCLIDINE SCREEN,URINE NEGATIVE (NEGATIVE); PROTEIN,URINE DIPSTICK NEGATIVE (NEGATIVE); URINE UROBILINOGEN 0.2 mg/dL (0.2 - 1)
[2020-01-02 04:56] LABS: BACTERIA,URINE FEW /HPF; EPITHELIAL CELLS,URINE RARE /LPF; WBC,URINE (MAN) 0-5 /HPF (0-5)
[2020-01-02 07:48] VITALS: BP 162/78
== END 2020-01-02 07:50 | disposition home or self-care (01) ==
LOC: ER 01:39
DX: T42.4X4A Poisoning by benzodiazepines, undetermined, initial encounter (principal); F10.129 Alcohol abuse with intoxication, unspecified
CPT/HCPCS: 36415; 80053; 80307; 80320; 80329 ×2; 81001; 82150; 83690; 85025; 99284; C9113; J3411; J7030

== ENCOUNTER 2021-02-20 09:43 | Emergency (ER) | payer OTHER ==
[~2021-02-20] VITALS: Ht 175.3 cm; Wt 127.0 kg
[~2021-02-20 09:43] MED LIST changes: +ATORVASTATIN CA20 MG PO; +BUSPIRONE HCL5 MG PO; +LISINOPRIL10 MG PO; +NORVASC10 MG PO
[2021-02-20] MEDS ORDERED: SODIUM CHLORIDE 0.9% 1000ML 1,000 ML IV STA (10:03)
[2021-02-20] MEDS ORDERED: ASPIRIN 81 MG CHEW TAB PO STA (10:03)
[2021-02-20] MEDS ORDERED: HALOPERIDOL LACTATE 5 MG/ML VIAL IV ONE (10:15)
[2021-02-20 11:01] LABS: BASOPHILS # (AUTO) 0.1 (0.0-0.1); HEMATOCRIT 41.1 % (38.2-49.6); HEMOGLOBIN 12.7 g/dL (14.0-18.0); LYMPHOCYTES # (AUTO) 2.4 (1.0-3.2); MEAN CORPUSCULAR HEMOGLOBIN 24.1 pg (28-32); MEAN CORPUSCULAR HGB CONC 30.9 g/dL (31-35); MEAN CORPUSCULAR VOLUME 78.1 fL (81-99); MONOCYTES # (AUTO) 0.6 (0.2-0.8); NEUTROPHILS # (AUTO) 5.2 (2.1-6.9); PLATELET COUNT 465 x10e3/uL (140-360); RED BLOOD COUNT 5.26 x10e6/uL (4.3-5.7); RED CELL DISTRIBUTION WIDTH 16.4 % (11.7-14.4)
[2021-02-20 11:11] LABS: INR 0.9; PROTHROMBIN TIME 12.9 seconds (11.9-14.5)
[2021-02-20 11:12] LABS: PARTIAL THROMBOPLASTIN TIME 23.4 seconds (23.8-35.5)
[2021-02-20 11:23] LABS: ALANINE AMINOTRANSFERASE 133 IU/L (0-55); ALBUMIN 3.4 g/dL (3.5-5.0); ALBUMIN/GLOBULIN RATIO 0.9 (0.8-2.0); ALKALINE PHOSPHATASE 120 IU/L (40-150); ANION GAP 18.1 mmol/L (8-16); BLOOD UREA NITROGEN 8 mg/dL (7-26); BUN/CREATININE RATIO 8 (6-25); CALCIUM 8.6 mg/dL (8.4-10.2); CARBON DIOXIDE 21 mmol/L (22-29); CHLORIDE 105 mmol/L (98-107); CREATINE KINASE 55 IU/L (30-200); CREATININE, SERUM 1.01 mg/dL (0.72-1.25); EST GLOMERULAR FILTRATION RATE 79 ML/MIN (60-); GLUCOSE 169 mg/dL (74-118); POTASSIUM 4.1 mmol/L (3.5-5.1); SODIUM 140 mmol/L (136-145)
[2021-02-20] MEDS ORDERED: PEPCID20 MG PO (14:10)
[2021-02-20 14:23] VITALS: BP 145/86
== END 2021-02-20 14:25 | disposition home or self-care (01) ==
LOC: ER 09:45
DX: R07.9 Chest pain, unspecified (principal); K86.1 Other chronic pancreatitis; F10.129 Alcohol abuse with intoxication, unspecified; I10 Essential (primary) hypertension; E78.5 Hyperlipidemia, unspecified; F41.9 Anxiety disorder, unspecified; F17.210 Nicotine dependence, cigarettes, uncomplicated
CPT/HCPCS: 36415; 71045; 80053; 82550; 82553; 83690; 83880; 84484; 85025; 85610; 85730; 93005; 99284; J1630; J7030

== ENCOUNTER 2021-03-12 11:20 | Outpatient (RCR) | payer OTHER ==
[~2021-03-12 11:20] MED LIST changes: +PEPCID20 MG PO
== END 2021-04-04 ==
LOC: PT 11:20
PROVIDERS: ATTEND Physician Assistant
DX: S46.012A Strain of muscle(s) and tendon(s) of the rotator cuff of left shoulder, initial encounter (principal)

== ENCOUNTER 2021-07-03 02:21 | Inpatient (IN) | payer OTHER ==
[~2021-07-03] VITALS: Ht 175.3 cm; Wt 126.1 kg
[2021-07-03] VITALS (16 sets, daily range): BP systolic 98–140; BP diastolic 62–86
[2021-07-03 02:42] LABS: BASOPHILS % 0.7 % (0.0-1.0); EOSINOPHILS # (AUTO) 0.1 (0.0-0.4); EOSINOPHILS % 2.2 % (0.0-6.0); HEMATOCRIT 37.6 % (38.2-49.6); HEMOGLOBIN 12.8 g/dL (14.0-18.0); LYMPHOCYTES % 16.7 % (18.0-39.1); MEAN CORPUSCULAR HEMOGLOBIN 26.1 pg (28-32); MEAN CORPUSCULAR VOLUME 76.6 fL (81-99); MONOCYTES # (AUTO) 0.8 (0.2-0.8); NEUTROPHILS # (AUTO) 3.9 (2.1-6.9); NEUTROPHILS % 66.2 % (38.7-80.0); PLATELET COUNT 333 x10e3/uL (140-360); RED BLOOD COUNT 4.91 x10e6/uL (4.3-5.7); RED CELL DISTRIBUTION WIDTH 14.7 % (11.7-14.4)
[2021-07-03] MEDS ORDERED: DIAZEPAM INJ 5 MG/ML 2 ML IV ONE ×2 (02:45→04:15)
[2021-07-03] MEDS ORDERED: SODIUM CHLORIDE 0.9% 1000ML 1,000 ML IV STA (02:47)
[2021-07-03] MEDS ORDERED: ONDANSETRON HCL INJ 2MG/ML 2ML 2 MG/ML VIAL IV STA (02:47)
[2021-07-03 03:00] LABS: LIPASE 41 U/L (8-78)
[2021-07-03 03:03] LABS: ALANINE AMINOTRANSFERASE 90 IU/L (0-55); ALBUMIN 3.7 g/dL (3.5-5.0); ALBUMIN/GLOBULIN RATIO 0.9 (0.8-2.0); ALKALINE PHOSPHATASE 92 IU/L (40-150); ANION GAP 17.1 mmol/L (8-16); BLOOD UREA NITROGEN 5 mg/dL (7-26); BUN/CREATININE RATIO 5 (6-25); CALCIUM 8.9 mg/dL (8.4-10.2); CARBON DIOXIDE 21 mmol/L (22-29); CHLORIDE 87 mmol/L (98-107); CREATINE KINASE 119 IU/L (30-200); CREATININE, SERUM 0.91 mg/dL (0.72-1.25); EST GLOMERULAR FILTRATION RATE 89 ML/MIN (60-); GLUCOSE 112 mg/dL (74-118); POTASSIUM 4.1 mmol/L (3.5-5.1); SODIUM 121 mmol/L (136-145)
[2021-07-03] MEDS ORDERED: IOPAMIDOL 370 MG/ML 200 ML INFUS..BTL INJ ONE (03:32)
[2021-07-03] MEDS ORDERED: SODIUM CHLORIDE 0.9% 50ML 50 ML ONE (03:32)
[2021-07-03] MEDS ORDERED: ASPIRIN 81 MG CHEW TAB PO ONE (04:15)
[2021-07-03] MEDS ORDERED: LORAZEPAM INJ 2 MG/ML VIAL IV PRN (04:15)
[2021-07-03] MEDS: SODIUM CHLORIDE 0.9% 1000ML 1,000 ML IV SCH ×3 (04:45→20:57)
[2021-07-03] MEDS: ONDANSETRON HCL INJ 2MG/ML 2ML 2 MG/ML VIAL IV PRN ×3 (06:29→15:05)
[2021-07-03] MEDS: Morphine 4mg Syringe 4 MG/ML INJ IV PRN ×5 (06:29→19:16)
[2021-07-03] MEDS ORDERED: TRICOR145 MG PO (07:38)
[2021-07-03] MEDS ORDERED: XANAX1 MG PO (07:38)
[2021-07-03] MEDS ORDERED: METFORMIN HCL500 MG PO (07:38)
[2021-07-03] MEDS ORDERED: PANTOPRAZOLE SO40 MG PO (07:39)
[2021-07-03] MEDS ORDERED: LORAZEPAM INJ 2 MG/ML VIAL ONE (07:59)
[2021-07-03 11:08] LABS: CREATINE KINASE 117 IU/L (30-200)
[2021-07-03] MEDS: ALPRAZOLAM 1 MG TAB PO PRN ×2 (11:22→20:30)
[2021-07-03] MEDS ORDERED: METOPROLOL TARTRATE 50 MG TAB PO SCH (12:15)
[2021-07-03] MEDS: METOPROLOL TARTRATE 50 MG TAB PO SCH ×2 (12:28→20:57)
[2021-07-03 12:33] LABS: CHOL/HDL RATIO 2.8 (3.9-4.7)
[2021-07-03 12:53] LABS: THYROID STIMULATING HORMONE 2.433 uIU/mL (0.350-4.940)
[2021-07-03] MEDS ORDERED: NICOTINE 21 MG/EA PATCH TOP PRN (16:45)
[2021-07-03 18:11] LABS: CREATINE KINASE 119 IU/L (30-200)
[2021-07-03] MEDS: ATORVASTATIN 20 MG TAB PO SCH (22:00)
[2021-07-04] VITALS (7 sets, daily range): BP systolic 110–132; BP diastolic 73–85
[2021-07-04] MEDS: Morphine 4mg Syringe 4 MG/ML INJ IV PRN ×4 (00:40→15:57)
[2021-07-04] MEDS: SODIUM CHLORIDE 0.9% 1000ML 1,000 ML IV SCH (04:02)
[2021-07-04] MEDS: ALPRAZOLAM 1 MG TAB PO PRN ×3 (05:00→23:22)
[2021-07-04] MEDS: METOPROLOL TARTRATE 50 MG TAB PO SCH ×3 (05:01→20:31)
[2021-07-04 05:54] LABS: BASOPHILS # (AUTO) 0.1 (0.0-0.1); BASOPHILS % 0.9 % (0.0-1.0); EOSINOPHILS % 0.3 % (0.0-6.0); HEMATOCRIT 37.8 % (38.2-49.6); HEMOGLOBIN 11.9 g/dL (14.0-18.0); LYMPHOCYTES # (AUTO) 1.5 (1.0-3.2); LYMPHOCYTES % 21.3 % (18.0-39.1); MEAN CORPUSCULAR HEMOGLOBIN 25.9 pg (28-32); MEAN CORPUSCULAR HGB CONC 31.5 g/dL (31-35); MEAN CORPUSCULAR VOLUME 82.2 fL (81-99); MONOCYTES # (AUTO) 0.9 (0.2-0.8); NEUTROPHILS # (AUTO) 4.4 (2.1-6.9); NEUTROPHILS % 64.1 % (38.7-80.0); PLATELET COUNT 321 x10e3/uL (140-360); RED CELL DISTRIBUTION WIDTH 15.3 % (11.7-14.4)
[2021-07-04 06:26] LABS: ALBUMIN 3.6 g/dL (3.5-5.0); ALBUMIN/GLOBULIN RATIO 0.9 (0.8-2.0); ANION GAP 14.3 mmol/L (8-16); CALCIUM 8.9 mg/dL (8.4-10.2); CREATININE, SERUM 1.16 mg/dL (0.72-1.25); POTASSIUM 4.3 mmol/L (3.5-5.1)
[2021-07-04] MEDS: PANTOPRAZOLE SOD 40 MG TABEC PO SCH ×2 (08:20→16:30)
[2021-07-04] MEDS ORDERED: MULTIVITAMINS- 12 INJECTION 10 ML, FOLIC ACID MDV 1 MG, THIAMINE HCL INJ 100 MG in SODI... IV ONE (11:00)
[2021-07-04] MEDS: ATORVASTATIN 20 MG TAB PO SCH (20:31)
[2021-07-04] MEDS: Morphine 2mg Syringe 2 MG/ML SYR IV PRN (21:59)
[2021-07-05] MEDS: Morphine 2mg Syringe 2 MG/ML SYR IV PRN (05:38)
[2021-07-05] MEDS: METOPROLOL TARTRATE 50 MG TAB PO SCH (05:39)
[2021-07-05 05:47] VITALS: BP 154/92
[2021-07-05] MEDS: ALPRAZOLAM 1 MG TAB PO PRN (07:32)
[2021-07-05] MEDS: PANTOPRAZOLE SOD 40 MG TABEC PO SCH (07:32)
[2021-07-05 08:25] VITALS: BP 134/90
[2021-07-05 08:56] VITALS: BP 134/90
[2021-07-05] MEDS ORDERED: FOLIC ACID0.4 MG PO (09:18)
[2021-07-05] MEDS ORDERED: VITAMIN B-1100 M1 PO (09:18)
[2021-07-05] MEDS ORDERED: METOPROLOL TART50 MG PO (09:18)
[2021-07-05] MEDS ORDERED: LIPITOR20 MG PO (09:18)
[2021-07-05] MEDS ORDERED: ACETAMINOPHEN-1 EAC4 PO (09:19)
== END 2021-07-05 11:27 | disposition home or self-care (01) | DRG 313 ==
LOC: ER 02:26 → ERHOLD 04:23 → ICU 09:29 → MED/SURG3 20:12
PROVIDERS: ADMIT Internal Medicine; ATTEND Internal Medicine
DX: R07.89 Other chest pain (principal); F10.239 Alcohol dependence with withdrawal, unspecified; Z68.41 Body mass index [BMI] 40.0-44.9, adult; E87.1 Hypo-osmolality and hyponatremia; F41.9 Anxiety disorder, unspecified; Y90.0 Blood alcohol level of less than 20 mg/100 ml; K70.10 Alcoholic hepatitis without ascites; E11.9 Type 2 diabetes mellitus without complications; I10 Essential (primary) hypertension; E66.01 Morbid (severe) obesity due to excess calories; R00.0 Tachycardia, unspecified; E78.5 Hyperlipidemia, unspecified; F17.210 Nicotine dependence, cigarettes, uncomplicated
CPT/HCPCS: 36415; 70450; 71045; 74177; 80053; 80061; 80320; 82550; 82553; 82948; 83036; 83690; 84443; 84484; 85025; 93005; 94799; 99284; J2060; J2270; J2405; J3360; J3411; J7030; Q9967; U0002

== ENCOUNTER 2021-09-27 05:13 | Emergency (ER) | payer OTHER ==
[~2021-09-27] VITALS: Ht 175.3 cm; Wt 120.2 kg
[~2021-09-27 05:13] MED LIST changes: +ACETAMINOPHEN-1 EAC4 PO; +FOLIC ACID0.4 MG PO; +METFORMIN HCL500 MG PO; +TRICOR145 MG PO; +VITAMIN B-1100 M1 PO; +XANAX1 MG PO
[2021-09-27] MEDS ORDERED: ONDANSETRON HCL INJ 2MG/ML 2ML 2 MG/ML VIAL IV STA (05:27)
[2021-09-27] MEDS ORDERED: METHYLPREDNISOLONE SOD SUCC 125 MG/2ML VIAL IV ONE (05:30)
[2021-09-27] MEDS ORDERED: ALBUTEROL/IPRATROPIUM 3 ML NEB NEB ONE (05:30)
[2021-09-27] MEDS ORDERED: SODIUM CHLORIDE 0.9% 1000ML 1,000 ML IV SCH (05:30)
[2021-09-27 06:05] LABS: BASOPHILS # (AUTO) 0.1 (0.0-0.1); BASOPHILS % 1.3 % (0.0-1.0); EOSINOPHILS % 0.2 % (0.0-6.0); HEMATOCRIT 40.1 % (38.2-49.6); HEMOGLOBIN 12.9 g/dL (14.0-18.0); LYMPHOCYTES # (AUTO) 1.2 (1.0-3.2); LYMPHOCYTES % 26.4 % (18.0-39.1); MEAN CORPUSCULAR HEMOGLOBIN 27.2 pg (28-32); MEAN CORPUSCULAR HGB CONC 32.2 g/dL (31-35); MEAN CORPUSCULAR VOLUME 84.4 fL (81-99); MONOCYTES # (AUTO) 0.4 (0.2-0.8); MONOCYTES % 9.1 % (4.4-11.3); NEUTROPHILS % 62.8 % (38.7-80.0); PLATELET COUNT 365 x10e3/uL (140-360); RED BLOOD COUNT 4.75 x10e6/uL (4.3-5.7); RED CELL DISTRIBUTION WIDTH 18.6 % (11.7-14.4)
[2021-09-27 06:18] LABS: CLARITY,URINE CLEAR (CLEAR); COLOR,URINE YELLOW (YELLOW); LEUKOCYTE ESTERASE ,URINE NEGATIVE (NEGATIVE); NITRITE,URINE NEGATIVE (NEGATIVE)
[2021-09-27 06:19] LABS: PROTEIN,URINE DIPSTICK NEGATIVE (NEGATIVE)
[2021-09-27 06:20] LABS: BACTERIA,URINE FEW /HPF; EPITHELIAL CELLS,URINE FEW /LPF; KETONES,URINE NEGATIVE (NEGATIVE); RBC,URINE 0-5 /HPF (0-5); URINE UROBILINOGEN 0.2 mg/dL (0.2 - 1); WBC,URINE (MAN) 0-5 /HPF (0-5)
[2021-09-27 06:23] LABS: INR 1.04; PARTIAL THROMBOPLASTIN TIME 28.4 seconds (23.8-35.5); PROTHROMBIN TIME 14.5 seconds (11.9-14.5)
[2021-09-27 06:29] LABS: ALBUMIN 3.1 g/dL (3.5-5.0); ALBUMIN/GLOBULIN RATIO 0.7 (0.8-2.0); ANION GAP 17.3 mmol/L (8-16); CALCIUM 8.2 mg/dL (8.4-10.2); CREATININE, SERUM 1.36 mg/dL (0.72-1.25); POTASSIUM 4.3 mmol/L (3.5-5.1)
[2021-09-27] MEDS ORDERED: IOPAMIDOL 370 MG/ML 100 ML INFUS..BTL INJ ONE (07:02)
[2021-09-27] MEDS ORDERED: PROAIR HFA INH8.5 GM INH (08:35)
== END 2021-09-27 08:59 | disposition home or self-care (01) ==
LOC: ER 05:26
DX: R06.00 Dyspnea, unspecified (principal); F10.129 Alcohol abuse with intoxication, unspecified; I10 Essential (primary) hypertension; E11.9 Type 2 diabetes mellitus without complications; Z20.822 Contact with and (suspected) exposure to COVID-19; Z86.16 Personal history of COVID-19
CPT/HCPCS: 36415; 71045; 71260; 74177; 80053; 80320; 81001; 83605; 83690; 85025; 85610; 85730; 87040; 87086; 93005; 94640; 94799; 99284; J0456; J0696; J2405; J2930; J7030; J7050; Q9967; U0002

== ENCOUNTER 2021-09-29 14:11 | Inpatient (IN) | payer OTHER ==
[~2021-09-29] VITALS: Ht 175.3 cm; Wt 142.0 kg
[~2021-09-29 14:11] MED LIST changes: +PROAIR HFA INH8.5 GM INH
[2021-09-29] MEDS ORDERED: SODIUM CHLORIDE 0.9% 1000ML 1,000 ML IV STA ×3 (14:25→15:19)
[2021-09-29] MEDS ORDERED: ONDANSETRON HCL INJ 2MG/ML 2ML 2 MG/ML VIAL IV STA (14:27)
[2021-09-29] MEDS ORDERED: KETOROLAC TROMETHAMINE 30 MG/ML VIAL IV STA (14:27)
[2021-09-29 14:46] LABS: BASOPHILS % 0.1 % (0.0-1.0); HEMATOCRIT 41.1 % (38.2-49.6); HEMOGLOBIN 13.5 g/dL (14.0-18.0); LYMPHOCYTES # (AUTO) 0.9 (1.0-3.2); LYMPHOCYTES % 3.5 % (18.0-39.1); MEAN CORPUSCULAR HEMOGLOBIN 27.6 pg (28-32); MEAN CORPUSCULAR HGB CONC 32.8 g/dL (31-35); MONOCYTES # (AUTO) 0.8 (0.2-0.8); NEUTROPHILS # (AUTO) 22.8 (2.1-6.9); NEUTROPHILS % 92.3 % (38.7-80.0); PLATELET COUNT 353 x10e3/uL (140-360); RED BLOOD COUNT 4.89 x10e6/uL (4.3-5.7); RED CELL DISTRIBUTION WIDTH 19.3 % (11.7-14.4)
[2021-09-29 15:11] LABS: ALBUMIN 2.9 g/dL (3.5-5.0); ALBUMIN/GLOBULIN RATIO 0.7 (0.8-2.0); ANION GAP 21.7 mmol/L (8-16); CREATININE, SERUM 1.59 mg/dL (0.72-1.25); POTASSIUM 4.7 mmol/L (3.5-5.1)
[2021-09-29] MEDS ORDERED: Vancomycin IV 1 GM in SODIUM CHLORIDE 0.9% 250ML 250 ML IV STA (15:15)
[2021-09-29 15:23] LABS: NEUTROPHILS % (MANUAL) 100 % (40-74); PLATELET ESTIMATE ADEQUATE
[2021-09-29 15:24] LABS: PLATELET MORPHOLOGY COMMENT NORMAL; RBC MORPHOLOGY COMMENT NORMAL
[2021-09-29] MEDS ORDERED: ONDANSETRON HCL INJ 2MG/ML 2ML 2 MG/ML VIAL IV PRN (15:45)
[2021-09-29] MEDS ORDERED: LACTATED RINGER'S 1,000 ML INJ ONE (17:00)
[2021-09-29] MEDS: SODIUM CHLORIDE 0.9% 1000ML 1,000 ML IV SCH ×2 (17:25→23:45)
[2021-09-29] MEDS ORDERED: IOPAMIDOL 370 MG/ML 100 ML INFUS..BTL INJ ONE (17:53)
[2021-09-29 19:25] LABS: CLARITY,URINE CLOUDY (CLEAR); COLOR,URINE AMBER (YELLOW); KETONES,URINE NEGATIVE (NEGATIVE); LEUKOCYTE ESTERASE ,URINE NEGATIVE (NEGATIVE); NITRITE,URINE NEGATIVE (NEGATIVE); PROTEIN,URINE DIPSTICK NEGATIVE (NEGATIVE); URINE UROBILINOGEN 0.2 mg/dL (0.2 - 1)
[2021-09-29 19:26] LABS: RBC,URINE 0-5 /HPF (0-5)
[2021-09-29 19:27] LABS: BACTERIA,URINE FEW /HPF; EPITHELIAL CELLS,URINE FEW /LPF; MUCUS,URINE FEW (RARE)
[2021-09-29] MEDS: Morphine 2mg Syringe 2 MG/ML SYR IV PRN ×2 (19:32→23:16)
[2021-09-29 21:30] VITALS: BP 104/54
[2021-09-29 22:00] VITALS: BP 102/50
[2021-09-29 22:05] VITALS: BP 102/50
[2021-09-29] MEDS: ONDANSETRON HCL INJ 2MG/ML 2ML 2 MG/ML VIAL IV PRN (22:27)
[2021-09-29] MEDS: LACTATED RINGER'S 1,000 ML INJ SCH (23:59)
[2021-09-30] VITALS (24 sets, daily range): BP systolic 90–134; BP diastolic 53–99
[2021-09-30] MEDS ORDERED: MULTIVITAMINS- 12 INJECTION 10 ML, FOLIC ACID MDV 1 MG, THIAMINE HCL INJ 100 MG in SODI... IV ONE (00:30)
[2021-09-30] MEDS ORDERED: THIAMINE HCL INJ 100 MG/ML 2ML VIAL ONE (00:49)
[2021-09-30] MEDS ORDERED: FOLIC ACID 5 MG/ML VIAL ONE (01:04)
[2021-09-30] MEDS: Morphine 2mg Syringe 2 MG/ML SYR IV PRN ×2 (03:27→07:47)
[2021-09-30] MEDS: LACTATED RINGER'S 1,000 ML INJ SCH ×6 (03:52→22:51)
[2021-09-30 05:20] LABS: BASOPHILS % 0.1 % (0.0-1.0); HEMATOCRIT 36.2 % (38.2-49.6); HEMOGLOBIN 11.8 g/dL (14.0-18.0); LYMPHOCYTES # (AUTO) 0.8 (1.0-3.2); LYMPHOCYTES % 3.2 % (18.0-39.1); MEAN CORPUSCULAR HEMOGLOBIN 27.7 pg (28-32); MEAN CORPUSCULAR HGB CONC 32.6 g/dL (31-35); MONOCYTES # (AUTO) 0.8 (0.2-0.8); NEUTROPHILS # (AUTO) 23.7 (2.1-6.9); NEUTROPHILS % 92.4 % (38.7-80.0); PLATELET COUNT 219 x10e3/uL (140-360); RED BLOOD COUNT 4.26 x10e6/uL (4.3-5.7); RED CELL DISTRIBUTION WIDTH 20.1 % (11.7-14.4)
[2021-09-30 05:36] LABS: INR 1.08
[2021-09-30 05:45] LABS: ALBUMIN 2.2 g/dL (3.5-5.0); ALBUMIN/GLOBULIN RATIO 0.7 (0.8-2.0); ANION GAP 17.9 mmol/L (8-16); CREATININE, SERUM 1.99 mg/dL (0.72-1.25); POTASSIUM 4.9 mmol/L (3.5-5.1)
[2021-09-30 06:10] LABS: CALCIUM 6.8 mg/dL (8.4-10.2)
[2021-09-30 07:44] LABS: BAND NEUTROPHILS % (MANUAL) 2 %; LYMPHOCYTES % (MANUAL) 1 % (19-48); NEUTROPHILS % (MANUAL) 97 % (40-74)
[2021-09-30 07:45] LABS: ANISOCYTOSIS SLIGHT; PLATELET ESTIMATE ADEQUATE; PLATELET MORPHOLOGY COMMENT NORMAL; RBC MORPHOLOGY COMMENT NORMAL
[2021-09-30] MEDS: METOPROLOL TARTRATE INJ 1 MG/ML VIAL IV PRN ×3 (09:07→19:30)
[2021-09-30] MEDS ORDERED: LORAZEPAM INJ 2 MG/ML VIAL IV ONE (09:15)
[2021-09-30] MEDS ORDERED: CHLORDIAZEPOXIDE HCL 10 MG CAP PO ONE (09:30)
[2021-09-30] MEDS ORDERED: CALCIUM GLUCONATE 10% INJ 13.95 MEQ in SODIUM CHLORIDE 0.9% 100 ML 100 ML IV ONE (10:00)
[2021-09-30] MEDS: HYDROMORPHONE 1MG/1ML INJ IV PRN ×4 (10:15→22:52)
[2021-09-30] MEDS ORDERED: SODIUM CHLORIDE 0.9% 1000ML 1,000 ML IV SCH (16:45)
[2021-09-30] MEDS: LORAZEPAM INJ 2 MG/ML VIAL IV PRN ×2 (17:23→22:08)
[2021-09-30] MEDS: METOCLOPRAMIDE HCL 10 MG/2ML VIAL IV SCH (18:18)
[2021-10-01] VITALS (23 sets, daily range): BP systolic 88–151; BP diastolic 43–127
[2021-10-01] MEDS: METOCLOPRAMIDE HCL 10 MG/2ML VIAL IV SCH ×4 (00:03→17:18)
[2021-10-01] MEDS: HYDROMORPHONE 1MG/1ML INJ IV PRN ×6 (02:43→21:57)
[2021-10-01] MEDS: LORAZEPAM INJ 2 MG/ML VIAL IV PRN ×5 (03:31→20:39)
[2021-10-01] MEDS: LACTATED RINGER'S 1,000 ML INJ SCH ×6 (05:04→22:03)
[2021-10-01] MEDS: ONDANSETRON HCL INJ 2MG/ML 2ML 2 MG/ML VIAL IV PRN ×2 (06:28→19:35)
[2021-10-01] MEDS: MULTIVITAMINS- 12 INJECTION 10 ML, FOLIC ACID MDV 1 MG, THIAMINE HCL INJ 100 MG in SODI... IV SCH (07:40)
[2021-10-01 07:46] LABS: BASOPHILS % 0.1 % (0.0-1.0); HEMATOCRIT 31.5 % (38.2-49.6); LYMPHOCYTES # (AUTO) 0.8 (1.0-3.2); LYMPHOCYTES % 4.7 % (18.0-39.1); MEAN CORPUSCULAR HGB CONC 31.7 g/dL (31-35); MEAN CORPUSCULAR VOLUME 88.2 fL (81-99); MONOCYTES # (AUTO) 0.6 (0.2-0.8); MONOCYTES % 3.8 % (4.4-11.3); NEUTROPHILS # (AUTO) 14.6 (2.1-6.9); NEUTROPHILS % 90.2 % (38.7-80.0); PLATELET COUNT 141 x10e3/uL (140-360); RED BLOOD COUNT 3.57 x10e6/uL (4.3-5.7); RED CELL DISTRIBUTION WIDTH 20.4 % (11.7-14.4)
[2021-10-01 08:12] LABS: ALBUMIN 1.9 g/dL (3.5-5.0); ALBUMIN/GLOBULIN RATIO 0.6 (0.8-2.0); ANION GAP 14.3 mmol/L (8-16); CALCIUM 7.3 mg/dL (8.4-10.2); CREATININE, SERUM 1.98 mg/dL (0.72-1.25); MAGNESIUM 1.4 MG/DL (1.3-2.1); POTASSIUM 4.3 mmol/L (3.5-5.1)
[2021-10-01] MEDS ORDERED: FUROSEMIDE INJ 10 MG/ML 4 ML VIAL IV ONE (09:15)
[2021-10-01 10:58] LABS: CREATININE,URINE RANDOM 188.86 mg/dL (63-166)
[2021-10-01] MEDS ORDERED: CALCIUM GLUC 1 G/50 ML NACL 100 ML IV ONE (11:00)
[2021-10-01] MEDS: HEPARIN SOD (PORCINE) 5,000 UNIT/ML VIAL SC SCH (21:10)
[2021-10-01] MEDS ORDERED: LORAZEPAM INJ 2 MG/ML VIAL IV ONE (22:30)
[2021-10-02] VITALS (22 sets, daily range): BP systolic 97–157; BP diastolic 59–94
[2021-10-02] MEDS: METOCLOPRAMIDE HCL 10 MG/2ML VIAL IV SCH ×5 (00:48→23:42)
[2021-10-02] MEDS: NICOTINE 21 MG/EA PATCH TOP SCH ×2 (01:15→08:17)
[2021-10-02 03:14] LABS: % IRON SATURATION 5 % (15-50); IRON 12 ug/dL (65-175); TOTAL IRON BINDING CAPACITY 235 ug/dL (261-478); TRANSFERRIN 168 mg/dL (174-364)
[2021-10-02] MEDS: HYDROMORPHONE 1MG/1ML INJ IV PRN ×6 (03:18→23:03)
[2021-10-02] MEDS: LORAZEPAM INJ 2 MG/ML VIAL IV PRN (04:51)
[2021-10-02 05:46] LABS: BASOPHILS % 0.2 % (0.0-1.0); EOSINOPHILS # (AUTO) 0.1 (0.0-0.4); EOSINOPHILS % 0.5 % (0.0-6.0); HEMATOCRIT 28.3 % (38.2-49.6); HEMOGLOBIN 8.8 g/dL (14.0-18.0); LYMPHOCYTES # (AUTO) 0.9 (1.0-3.2); LYMPHOCYTES % 7.3 % (18.0-39.1); MEAN CORPUSCULAR HEMOGLOBIN 28.2 pg (28-32); MEAN CORPUSCULAR HGB CONC 31.1 g/dL (31-35); MEAN CORPUSCULAR VOLUME 90.7 fL (81-99); MONOCYTES # (AUTO) 0.9 (0.2-0.8); MONOCYTES % 7.5 % (4.4-11.3); NEUTROPHILS # (AUTO) 10.2 (2.1-6.9); NEUTROPHILS % 81.9 % (38.7-80.0); PLATELET COUNT 124 x10e3/uL (140-360); RED BLOOD COUNT 3.12 x10e6/uL (4.3-5.7); RED CELL DISTRIBUTION WIDTH 20.7 % (11.7-14.4)
[2021-10-02] MEDS: LACTATED RINGER'S 1,000 ML INJ SCH ×3 (05:47→10:33)
[2021-10-02 06:14] LABS: ALBUMIN 1.7 g/dL (3.5-5.0); ALBUMIN/GLOBULIN RATIO 0.5 (0.8-2.0); ANION GAP 16.1 mmol/L (8-16); CALCIUM 7.4 mg/dL (8.4-10.2); CREATININE, SERUM 1.17 mg/dL (0.72-1.25); POTASSIUM 4.1 mmol/L (3.5-5.1)
[2021-10-02 06:38] LABS: MAGNESIUM 1.6 MG/DL (1.3-2.1); PHOSPHORUS 1.5 MG/DL (2.3-4.7)
[2021-10-02] MEDS: MULTIVITAMINS- 12 INJECTION 10 ML, FOLIC ACID MDV 1 MG, THIAMINE HCL INJ 100 MG in SODI... IV SCH (08:16)
[2021-10-02] MEDS: HEPARIN SOD (PORCINE) 5,000 UNIT/ML VIAL SC SCH ×2 (08:19→20:47)
[2021-10-02] MEDS: CHLORDIAZEPOXIDE HCL 25 MG CAP PO PRN ×2 (11:16→21:57)
[2021-10-02] MEDS ORDERED: SODIUM PHOSPHATE IN 0.9 % NACL 15 MMOL in SODIUM CHLORIDE 0.9% 250ML 250 ML IV ONE ×2 (12:00)
[2021-10-02] MEDS: ONDANSETRON HCL INJ 2MG/ML 2ML 2 MG/ML VIAL IV PRN ×2 (12:19→20:42)
[2021-10-02] MEDS ORDERED: FUROSEMIDE INJ 10 MG/ML 2 ML VIAL IV ONE (13:30)
[2021-10-02] MEDS: SODIUM BICARBONATE 8.4% SYRING 75 ML in DEXTROSE 5%/0.45% SOD CHL 1,000 ML IV SCH ×2 (13:37→22:33)
[2021-10-02] MEDS ORDERED: IBUPROFEN 800MG/ 200ML 200 ML IV PRN (13:45)
[2021-10-02] MEDS ORDERED: CALCIUM GLUCONATE 10% INJ 9.3 MEQ in SODIUM CHLORIDE 0.9% 100 ML 100 ML IV ONE (14:00)
[2021-10-02] MEDS ORDERED: POTASSIUM PHOSPHATE 15 MM in SODIUM CHLORIDE 0.9% 250ML 250 ML IV ONE (16:00)
[2021-10-03] VITALS (13 sets, daily range): BP systolic 118–152; BP diastolic 67–88
[2021-10-03] MEDS: HYDROMORPHONE 1MG/1ML INJ IV PRN ×6 (02:21→22:18)
[2021-10-03] MEDS: ONDANSETRON HCL INJ 2MG/ML 2ML 2 MG/ML VIAL IV PRN ×3 (02:23→19:39)
[2021-10-03] MEDS ORDERED: CYANOCOBALAMIN INJ 1,000 MCG/ML VIAL IM ONE (03:00)
[2021-10-03] MEDS: CHLORDIAZEPOXIDE HCL 25 MG CAP PO PRN (03:42)
[2021-10-03 05:22] LABS: BASOPHILS % 0.2 % (0.0-1.0); EOSINOPHILS # (AUTO) 0.1 (0.0-0.4); EOSINOPHILS % 0.5 % (0.0-6.0); HEMOGLOBIN 8.1 g/dL (14.0-18.0); LYMPHOCYTES # (AUTO) 0.7 (1.0-3.2); MEAN CORPUSCULAR HEMOGLOBIN 28.1 pg (28-32); MEAN CORPUSCULAR HGB CONC 31.2 g/dL (31-35); MEAN CORPUSCULAR VOLUME 90.3 fL (81-99); MONOCYTES # (AUTO) 1.2 (0.2-0.8); MONOCYTES % 12.4 % (4.4-11.3); NEUTROPHILS % 74.4 % (38.7-80.0); PLATELET COUNT 116 x10e3/uL (140-360); RED BLOOD COUNT 2.88 x10e6/uL (4.3-5.7); RED CELL DISTRIBUTION WIDTH 20.2 % (11.7-14.4)
[2021-10-03] MEDS: METOCLOPRAMIDE HCL 10 MG/2ML VIAL IV SCH ×4 (05:25→23:54)
[2021-10-03 05:56] LABS: ALBUMIN 1.5 g/dL (3.5-5.0); ALBUMIN/GLOBULIN RATIO 0.4 (0.8-2.0); ANION GAP 13.5 mmol/L (8-16); CALCIUM 7.3 mg/dL (8.4-10.2); CREATININE, SERUM 0.77 mg/dL (0.72-1.25); POTASSIUM 3.5 mmol/L (3.5-5.1)
[2021-10-03 06:06] LABS: MAGNESIUM 1.7 MG/DL (1.3-2.1); PHOSPHORUS 1.3 MG/DL (2.3-4.7)
[2021-10-03] MEDS: HEPARIN SOD (PORCINE) 5,000 UNIT/ML VIAL SC SCH ×2 (09:03→21:24)
[2021-10-03] MEDS: NICOTINE 21 MG/EA PATCH TOP SCH (09:09)
[2021-10-03] MEDS: IRON SUCROSE 100 MG in SODIUM CHLORIDE 0.9% 100 ML 100 ML IV SCH (09:23)
[2021-10-03] MEDS: MULTIVITAMINS- 12 INJECTION 10 ML, FOLIC ACID MDV 1 MG, THIAMINE HCL INJ 100 MG in SODI... IV SCH (09:24)
[2021-10-03] MEDS: CYANOCOBALAMIN INJ 1,000 MCG/ML VIAL IM SCH (09:25)
[2021-10-03] MEDS ORDERED: LORAZEPAM INJ 2 MG/ML VIAL IV PRN (09:45)
[2021-10-03] MEDS ORDERED: IBUPROFEN 800MG/ 200ML 200 ML IV PRN (09:45)
[2021-10-03] MEDS ORDERED: CALCIUM GLUCONATE 10% INJ 13.95 MEQ in SODIUM CHLORIDE 0.9% 100 ML 100 ML IV ONE (11:30)
[2021-10-03] MEDS ORDERED: DOCUSATE SODIUM 100 MG CAP PO PRN (14:45)
[2021-10-03] MEDS ORDERED: DOCUSATE SODIUM LIQD 100 MG/10 ML UDC NG ONE (14:45)
[2021-10-03] MEDS: SODIUM BICARBONATE 8.4% SYRING 75 ML in DEXTROSE 5%/0.45% SOD CHL 1,000 ML IV SCH ×2 (15:10→19:30)
[2021-10-03] MEDS ORDERED: POTASSIUM PHOSPHATE 30 MM in SODIUM CHLORIDE 0.9% 250ML 250 ML IV ONE (16:00)
[2021-10-03] MEDS: ALPRAZOLAM 0.5 MG TAB PO PRN (19:29)
[2021-10-04] VITALS (7 sets, daily range): BP systolic 122–166; BP diastolic 63–93
[2021-10-04] MEDS: ONDANSETRON HCL INJ 2MG/ML 2ML 2 MG/ML VIAL IV PRN ×4 (01:14→21:06)
[2021-10-04] MEDS: HYDROMORPHONE 1MG/1ML INJ IV PRN ×6 (01:23→21:06)
[2021-10-04] MEDS ORDERED: ONDANSETRON HCL INJ 2MG/ML 2ML 2 MG/ML VIAL IV STA (05:39)
[2021-10-04] MEDS ORDERED: IBUPROFEN 800MG/ 200ML 800 MG in SODIUM CHLORIDE 0.9% 250ML 250 ML IV PRN (05:39)
[2021-10-04] MEDS ORDERED: IBUPROFEN 800MG/ 200ML 200 ML IV PRN (06:00)
[2021-10-04] MEDS: METOCLOPRAMIDE HCL 10 MG/2ML VIAL IV SCH ×3 (06:31→17:37)
[2021-10-04 06:49] LABS: BASOPHILS % 0.4 % (0.0-1.0); EOSINOPHILS # (AUTO) 0.1 (0.0-0.4); EOSINOPHILS % 0.6 % (0.0-6.0); HEMATOCRIT 24.1 % (38.2-49.6); HEMOGLOBIN 7.7 g/dL (14.0-18.0); LYMPHOCYTES % 9.1 % (18.0-39.1); MEAN CORPUSCULAR HEMOGLOBIN 28.2 pg (28-32); MEAN CORPUSCULAR VOLUME 88.3 fL (81-99); MONOCYTES # (AUTO) 1.5 (0.2-0.8); MONOCYTES % 14.4 % (4.4-11.3); NEUTROPHILS % 65.5 % (38.7-80.0); PLATELET COUNT 159 x10e3/uL (140-360); RED BLOOD COUNT 2.73 x10e6/uL (4.3-5.7); RED CELL DISTRIBUTION WIDTH 20.1 % (11.7-14.4)
[2021-10-04 07:32] LABS: ALANINE AMINOTRANSFERASE 47 IU/L (0-55); ALBUMIN 1.5 g/dL (3.5-5.0); ALBUMIN/GLOBULIN RATIO 0.4 (0.8-2.0); ALKALINE PHOSPHATASE 212 IU/L (40-150); ANION GAP 12.2 mmol/L (8-16); BLOOD UREA NITROGEN < 5 mg/dL (7-26); CALCIUM 7.2 mg/dL (8.4-10.2); CARBON DIOXIDE 27 mmol/L (22-29); CHLORIDE 98 mmol/L (98-107); GLUCOSE 127 mg/dL (74-118); MAGNESIUM 1.5 MG/DL (1.3-2.1); PHOSPHORUS 1.4 MG/DL (2.3-4.7); POTASSIUM 3.2 mmol/L (3.5-5.1); SODIUM 134 mmol/L (136-145)
[2021-10-04 07:35] LABS: BUN/CREATININE RATIO 6 (6-25)
[2021-10-04] MEDS: ALPRAZOLAM 0.5 MG TAB PO PRN ×2 (07:53→21:07)
[2021-10-04] MEDS: CYANOCOBALAMIN INJ 1,000 MCG/ML VIAL IM SCH (09:36)
[2021-10-04] MEDS: HEPARIN SOD (PORCINE) 5,000 UNIT/ML VIAL SC SCH ×2 (09:39→21:01)
[2021-10-04] MEDS: NICOTINE 21 MG/EA PATCH TOP SCH (09:39)
[2021-10-04] MEDS: MULTIVITAMINS- 12 INJECTION 10 ML, FOLIC ACID MDV 1 MG, THIAMINE HCL INJ 100 MG in SODI... IV SCH (09:40)
[2021-10-04] MEDS ORDERED: POTASSIUM CHLORIDE 20MEQ/100ML 200 ML IV ONE (10:15)
[2021-10-04] MEDS: SODIUM BICARBONATE 8.4% SYRING 75 ML in DEXTROSE 5%/0.45% SOD CHL 1,000 ML IV SCH ×2 (10:16→22:41)
[2021-10-04] MEDS: IRON SUCROSE 100 MG in SODIUM CHLORIDE 0.9% 100 ML 100 ML IV SCH (10:51)
[2021-10-04] MEDS ORDERED: BISACODYL 10 MG SUPP PR ONE (17:00)
[2021-10-04] MEDS: ALBUTEROL SULFATE HFA 8GM INHALATION AEROSOL INH PRN (19:40)
[2021-10-05] VITALS (8 sets, daily range): BP systolic 114–139; BP diastolic 54–83
[2021-10-05] MEDS: METOCLOPRAMIDE HCL 10 MG/2ML VIAL IV SCH ×5 (00:14→23:53)
[2021-10-05] MEDS: HYDROMORPHONE 1MG/1ML INJ IV PRN ×5 (00:22→20:46)
[2021-10-05] MEDS: ONDANSETRON HCL INJ 2MG/ML 2ML 2 MG/ML VIAL IV PRN ×2 (04:46→20:46)
[2021-10-05 06:55] LABS: BASOPHILS # (AUTO) 0.1 (0.0-0.1); BASOPHILS % 0.3 % (0.0-1.0); EOSINOPHILS # (AUTO) 0.1 (0.0-0.4); EOSINOPHILS % 0.5 % (0.0-6.0); HEMATOCRIT 25.3 % (38.2-49.6); HEMOGLOBIN 7.8 g/dL (14.0-18.0); LYMPHOCYTES # (AUTO) 1.3 (1.0-3.2); LYMPHOCYTES % 9.1 % (18.0-39.1); MEAN CORPUSCULAR HEMOGLOBIN 27.8 pg (28-32); MEAN CORPUSCULAR HGB CONC 30.8 g/dL (31-35); MONOCYTES # (AUTO) 1.7 (0.2-0.8); MONOCYTES % 11.8 % (4.4-11.3); NEUTROPHILS # (AUTO) 9.9 (2.1-6.9); NEUTROPHILS % 67.4 % (38.7-80.0); PLATELET COUNT 213 x10e3/uL (140-360); RED BLOOD COUNT 2.81 x10e6/uL (4.3-5.7); RED CELL DISTRIBUTION WIDTH 19.8 % (11.7-14.4)
[2021-10-05 07:15] LABS: ALANINE AMINOTRANSFERASE 39 IU/L (0-55); ALBUMIN 1.6 g/dL (3.5-5.0); ALBUMIN/GLOBULIN RATIO 0.4 (0.8-2.0); ALKALINE PHOSPHATASE 193 IU/L (40-150); ANION GAP 15.3 mmol/L (8-16); BLOOD UREA NITROGEN < 5 mg/dL (7-26); CALCIUM 7.6 mg/dL (8.4-10.2); CARBON DIOXIDE 26 mmol/L (22-29); CHLORIDE 97 mmol/L (98-107); GLUCOSE 131 mg/dL (74-118); LIPASE 54 U/L (8-78); POTASSIUM 3.3 mmol/L (3.5-5.1); SODIUM 135 mmol/L (136-145)
[2021-10-05 07:22] LABS: BUN/CREATININE RATIO 6 (6-25)
[2021-10-05] MEDS ORDERED: IOPAMIDOL 370 MG/ML 100 ML INFUS..BTL INJ ONE (07:50)
[2021-10-05] MEDS: HEPARIN SOD (PORCINE) 5,000 UNIT/ML VIAL SC SCH ×2 (09:00→20:35)
[2021-10-05] MEDS: CYANOCOBALAMIN INJ 1,000 MCG/ML VIAL IM SCH (09:15)
[2021-10-05] MEDS: NICOTINE 21 MG/EA PATCH TOP SCH (09:21)
[2021-10-05] MEDS: ALPRAZOLAM 0.5 MG TAB PO PRN ×2 (10:36→20:45)
[2021-10-05] MEDS: IRON SUCROSE 100 MG in SODIUM CHLORIDE 0.9% 100 ML 100 ML IV SCH (10:36)
[2021-10-05] MEDS ORDERED: POTASSIUM CHLORIDE 20 MEQ TAB CR PO STA (16:14)
[2021-10-06] VITALS (8 sets, daily range): BP systolic 119–133; BP diastolic 69–86
[2021-10-06] MEDS: HYDROMORPHONE 1MG/1ML INJ IV PRN ×7 (00:07→21:31)
[2021-10-06] MEDS: ONDANSETRON HCL INJ 2MG/ML 2ML 2 MG/ML VIAL IV PRN ×4 (04:56→21:32)
[2021-10-06] MEDS: METOCLOPRAMIDE HCL 10 MG/2ML VIAL IV SCH ×4 (06:16→23:20)
[2021-10-06 06:36] LABS: BASOPHILS # (AUTO) 0.1 (0.0-0.1); BASOPHILS % 0.4 % (0.0-1.0); EOSINOPHILS # (AUTO) 0.1 (0.0-0.4); EOSINOPHILS % 0.4 % (0.0-6.0); HEMATOCRIT 23.7 % (38.2-49.6); HEMOGLOBIN 7.4 g/dL (14.0-18.0); LYMPHOCYTES # (AUTO) 1.4 (1.0-3.2); MEAN CORPUSCULAR HEMOGLOBIN 28.4 pg (28-32); MEAN CORPUSCULAR HGB CONC 31.2 g/dL (31-35); MEAN CORPUSCULAR VOLUME 90.8 fL (81-99); MONOCYTES # (AUTO) 1.8 (0.2-0.8); MONOCYTES % 9.9 % (4.4-11.3); NEUTROPHILS # (AUTO) 13.1 (2.1-6.9); NEUTROPHILS % 73.1 % (38.7-80.0); PLATELET COUNT 236 x10e3/uL (140-360); RED BLOOD COUNT 2.61 x10e6/uL (4.3-5.7); RED CELL DISTRIBUTION WIDTH 19.9 % (11.7-14.4)
[2021-10-06 06:58] LABS: ANION GAP 14.3 mmol/L (8-16); CALCIUM 7.7 mg/dL (8.4-10.2); CARBON DIOXIDE 25 mmol/L (22-29); CHLORIDE 100 mmol/L (98-107); CREATININE, SERUM 0.83 mg/dL (0.72-1.25); GLUCOSE 126 mg/dL (74-118); POTASSIUM 3.3 mmol/L (3.5-5.1); SODIUM 136 mmol/L (136-145)
[2021-10-06 07:02] LABS: BLOOD UREA NITROGEN < 5 mg/dL (7-26); BUN/CREATININE RATIO 6 (6-25)
[2021-10-06] MEDS: FUROSEMIDE 40 MG TAB PO SCH (08:10)
[2021-10-06] MEDS: NICOTINE 21 MG/EA PATCH TOP SCH (08:14)
[2021-10-06] MEDS: IRON SUCROSE 100 MG in SODIUM CHLORIDE 0.9% 100 ML 100 ML IV SCH (08:17)
[2021-10-06] MEDS: CYANOCOBALAMIN INJ 1,000 MCG/ML VIAL IM SCH (08:29)
[2021-10-06] MEDS: HEPARIN SOD (PORCINE) 5,000 UNIT/ML VIAL SC SCH (08:33)
[2021-10-06] MEDS: ALPRAZOLAM 0.5 MG TAB PO PRN ×2 (09:23→21:31)
[2021-10-06] MEDS: ALBUTEROL SULFATE HFA 8GM INHALATION AEROSOL INH PRN (10:58)
[2021-10-06 11:40] LABS: BAND NEUTROPHILS % (MANUAL) 1 %; LYMPHOCYTES % (MANUAL) 4 % (19-48); METAMYELOCYTES % (MANUAL) 1 % (0-0); MONOCYTES % (MANUAL) 2 % (3.4-9.0); MYELOCYTES % (MANUAL) 1 % (0-0); NEUTROPHILS % (MANUAL) 89 % (40-74); PLATELET ESTIMATE ADEQUATE; PLATELET MORPHOLOGY COMMENT NORMAL; POLYCHROMASIA FEW; PROMYELOCYTES % (MANUAL) 2 % (0-0); RBC MORPHOLOGY COMMENT NORMAL
[2021-10-06] MEDS ORDERED: POTASSIUM CHLORIDE 20MEQ/100ML 200 ML IV ONE (12:30)
[2021-10-06 13:44] LABS: BASOPHILS # (AUTO) 0.1 (0.0-0.1); BASOPHILS % 0.3 % (0.0-1.0); EOSINOPHILS # (AUTO) 0.1 (0.0-0.4); EOSINOPHILS % 0.3 % (0.0-6.0); HEMATOCRIT 24.3 % (38.2-49.6); HEMOGLOBIN 7.4 g/dL (14.0-18.0); LYMPHOCYTES # (AUTO) 1.4 (1.0-3.2); LYMPHOCYTES % 7.6 % (18.0-39.1); MEAN CORPUSCULAR HGB CONC 30.5 g/dL (31-35); MONOCYTES # (AUTO) 1.6 (0.2-0.8); MONOCYTES % 8.9 % (4.4-11.3); NEUTROPHILS # (AUTO) 13.8 (2.1-6.9); NEUTROPHILS % 75.4 % (38.7-80.0); PLATELET COUNT 265 x10e3/uL (140-360); RED BLOOD COUNT 2.64 x10e6/uL (4.3-5.7); RED CELL DISTRIBUTION WIDTH 19.9 % (11.7-14.4)
[2021-10-06] MEDS ORDERED: SODIUM CHLORIDE 0.9% 250ML 250 ML ONE (13:50)
[2021-10-06] MEDS: HEPARIN 25,000 UNIT 1,500 UNIT in DEXTROSE 5% 250ML 250 ML IV SCH (14:00)
[2021-10-07] VITALS (7 sets, daily range): BP systolic 101–134; BP diastolic 60–75
[2021-10-07] MEDS: HYDROMORPHONE 1MG/1ML INJ IV PRN ×6 (01:11→19:46)
[2021-10-07] MEDS: METOCLOPRAMIDE HCL 10 MG/2ML VIAL IV SCH ×3 (06:30→17:17)
[2021-10-07] MEDS: HEPARIN 25,000 UNIT 1,500 UNIT in DEXTROSE 5% 250ML 250 ML IV SCH ×2 (06:35→19:53)
[2021-10-07] MEDS ORDERED: SODIUM CHLORIDE 0.9% 250ML 250 ML ONE ×2 (07:10→16:12)
[2021-10-07 07:47] LABS: BASOPHILS # (AUTO) 0.1 (0.0-0.1); BASOPHILS % 0.3 % (0.0-1.0); EOSINOPHILS # (AUTO) 0.1 (0.0-0.4); EOSINOPHILS % 0.5 % (0.0-6.0); HEMATOCRIT 23.2 % (38.2-49.6); HEMOGLOBIN 7.1 g/dL (14.0-18.0); LYMPHOCYTES # (AUTO) 1.6 (1.0-3.2); LYMPHOCYTES % 7.8 % (18.0-39.1); MEAN CORPUSCULAR HEMOGLOBIN 28.2 pg (28-32); MEAN CORPUSCULAR HGB CONC 30.6 g/dL (31-35); MEAN CORPUSCULAR VOLUME 92.1 fL (81-99); MONOCYTES # (AUTO) 1.4 (0.2-0.8); MONOCYTES % 7.1 % (4.4-11.3); NEUTROPHILS # (AUTO) 15.8 (2.1-6.9); NEUTROPHILS % 78.4 % (38.7-80.0); PLATELET COUNT 358 x10e3/uL (140-360); RED BLOOD COUNT 2.52 x10e6/uL (4.3-5.7); RED CELL DISTRIBUTION WIDTH 20.3 % (11.7-14.4)
[2021-10-07] MEDS: FUROSEMIDE 40 MG TAB PO SCH (08:45)
[2021-10-07] MEDS: NICOTINE 21 MG/EA PATCH TOP SCH (08:45)
[2021-10-07] MEDS: CYANOCOBALAMIN INJ 1,000 MCG/ML VIAL IM SCH (08:48)
[2021-10-07] MEDS: ONDANSETRON HCL INJ 2MG/ML 2ML 2 MG/ML VIAL IV PRN ×2 (08:51→16:20)
[2021-10-07 08:52] LABS: ANISOCYTOSIS MODERATE; BAND NEUTROPHILS % (MANUAL) 3 %; EOSINOPHILS % (MANUAL) 1 % (0-7); HYPOCHROMASIA MODERATE; LYMPHOCYTES % (MANUAL) 1 % (19-48); METAMYELOCYTES % (MANUAL) 2 % (0-0); MONOCYTES % (MANUAL) 3 % (3.4-9.0); MYELOCYTES % (MANUAL) 6 % (0-0); NEUTROPHILS % (MANUAL) 84 % (40-74); PLATELET ESTIMATE ADEQUATE; PLATELET MORPHOLOGY COMMENT NORMAL; RBC MORPHOLOGY COMMENT ABNORMAL
[2021-10-07] MEDS: ALPRAZOLAM 0.5 MG TAB PO PRN ×2 (09:56→19:46)
[2021-10-07] MEDS: IRON SUCROSE 100 MG in SODIUM CHLORIDE 0.9% 100 ML 100 ML IV SCH (09:57)
[2021-10-07] MEDS ORDERED: SODIUM CHLORIDE 0.9% 250ML 250 ML IV ONE (10:45)
[2021-10-07] MEDS: ACETAMINOPHEN 325 MG TAB PO PRN ×2 (13:06→22:15)
[2021-10-07 22:14] LABS: BASOPHILS # (AUTO) 0.1 (0.0-0.1); BASOPHILS % 0.4 % (0.0-1.0); EOSINOPHILS # (AUTO) 0.1 (0.0-0.4); EOSINOPHILS % 0.5 % (0.0-6.0); HEMATOCRIT 26.7 % (38.2-49.6); HEMOGLOBIN 8.3 g/dL (14.0-18.0); LYMPHOCYTES # (AUTO) 1.6 (1.0-3.2); LYMPHOCYTES % 7.1 % (18.0-39.1); MEAN CORPUSCULAR HEMOGLOBIN 28.8 pg (28-32); MEAN CORPUSCULAR HGB CONC 31.1 g/dL (31-35); MEAN CORPUSCULAR VOLUME 92.7 fL (81-99); MONOCYTES # (AUTO) 1.6 (0.2-0.8); MONOCYTES % 7.2 % (4.4-11.3); NEUTROPHILS # (AUTO) 17.4 (2.1-6.9); NEUTROPHILS % 79.9 % (38.7-80.0); PLATELET COUNT 432 x10e3/uL (140-360); RED BLOOD COUNT 2.88 x10e6/uL (4.3-5.7); RED CELL DISTRIBUTION WIDTH 19.2 % (11.7-14.4)
[2021-10-08] VITALS (8 sets, daily range): BP systolic 110–122; BP diastolic 66–74
[2021-10-08] MEDS: METOCLOPRAMIDE HCL 10 MG/2ML VIAL IV SCH ×5 (00:07→23:19)
[2021-10-08] MEDS: HYDROMORPHONE 1MG/1ML INJ IV PRN ×6 (03:27→23:20)
[2021-10-08 06:34] LABS: BASOPHILS # (AUTO) 0.1 (0.0-0.1); BASOPHILS % 0.4 % (0.0-1.0); EOSINOPHILS # (AUTO) 0.2 (0.0-0.4); EOSINOPHILS % 0.9 % (0.0-6.0); HEMATOCRIT 23.6 % (38.2-49.6); HEMOGLOBIN 7.3 g/dL (14.0-18.0); LYMPHOCYTES # (AUTO) 1.4 (1.0-3.2); LYMPHOCYTES % 7.4 % (18.0-39.1); MEAN CORPUSCULAR HGB CONC 30.9 g/dL (31-35); MEAN CORPUSCULAR VOLUME 93.7 fL (81-99); MONOCYTES # (AUTO) 1.7 (0.2-0.8); MONOCYTES % 8.6 % (4.4-11.3); NEUTROPHILS # (AUTO) 15.1 (2.1-6.9); NEUTROPHILS % 77.6 % (38.7-80.0); PLATELET COUNT 474 x10e3/uL (140-360); RED BLOOD COUNT 2.52 x10e6/uL (4.3-5.7); RED CELL DISTRIBUTION WIDTH 19.6 % (11.7-14.4)
[2021-10-08 07:03] LABS: ALANINE AMINOTRANSFERASE 20 IU/L (0-55); ALBUMIN 1.6 g/dL (3.5-5.0); ALBUMIN/GLOBULIN RATIO 0.4 (0.8-2.0); ALKALINE PHOSPHATASE 132 IU/L (40-150); ANION GAP 12.4 mmol/L (8-16); BLOOD UREA NITROGEN < 5 mg/dL (7-26); CALCIUM 7.9 mg/dL (8.4-10.2); CARBON DIOXIDE 30 mmol/L (22-29); CHLORIDE 98 mmol/L (98-107); CREATININE, SERUM 0.96 mg/dL (0.72-1.25); GLUCOSE 161 mg/dL (74-118); MAGNESIUM 1.7 MG/DL (1.3-2.1); PHOSPHORUS 3.2 MG/DL (2.3-4.7); POTASSIUM 3.4 mmol/L (3.5-5.1); SODIUM 137 mmol/L (136-145)
[2021-10-08 07:06] LABS: BUN/CREATININE RATIO 5 (6-25)
[2021-10-08] MEDS ORDERED: HEPARIN 25,000 UNIT DRIP IV ONE (08:32)
[2021-10-08] MEDS: NICOTINE 21 MG/EA PATCH TOP SCH (09:00)
[2021-10-08] MEDS: FUROSEMIDE 40 MG TAB PO SCH (09:21)
[2021-10-08] MEDS: IRON SUCROSE 100 MG in SODIUM CHLORIDE 0.9% 100 ML 100 ML IV SCH (09:22)
[2021-10-08] MEDS: ONDANSETRON HCL INJ 2MG/ML 2ML 2 MG/ML VIAL IV PRN (09:29)
[2021-10-08] MEDS: ALPRAZOLAM 0.5 MG TAB PO PRN ×2 (09:30→20:06)
[2021-10-08] MEDS: CYANOCOBALAMIN INJ 1,000 MCG/ML VIAL IM SCH (10:43)
[2021-10-08 13:53] LABS: CLARITY,URINE CLEAR (CLEAR); COLOR,URINE YELLOW (YELLOW); KETONES,URINE NEGATIVE (NEGATIVE); LEUKOCYTE ESTERASE ,URINE NEGATIVE (NEGATIVE); NITRITE,URINE NEGATIVE (NEGATIVE); PROTEIN,URINE DIPSTICK NEGATIVE (NEGATIVE)
[2021-10-08 13:54] LABS: URINE UROBILINOGEN 1 mg/dL (0.2 - 1)
[2021-10-08 14:15] LABS: RBC,URINE 0-5 /HPF (0-5); WBC,URINE (MAN) 0-5 /HPF (0-5)
[2021-10-08 16:49] LABS: INR 0.99
[2021-10-08] MEDS: HYDROCODONE/APAP 5MG-325MG TAB PO PRN (18:06)
[2021-10-08] MEDS: HEPARIN 25,000 UNIT 1,500 UNIT in DEXTROSE 5% 250ML 250 ML IV SCH (19:59)
[2021-10-09] VITALS (9 sets, daily range): BP systolic 119–157; BP diastolic 65–83
[2021-10-09] MEDS: HYDROMORPHONE 1MG/1ML INJ IV PRN ×5 (04:11→21:05)
[2021-10-09 05:37] LABS: BASOPHILS # (AUTO) 0.1 (0.0-0.1); BASOPHILS % 0.5 % (0.0-1.0); EOSINOPHILS # (AUTO) 0.1 (0.0-0.4); EOSINOPHILS % 0.8 % (0.0-6.0); HEMATOCRIT 24.9 % (38.2-49.6); HEMOGLOBIN 7.7 g/dL (14.0-18.0); LYMPHOCYTES # (AUTO) 1.2 (1.0-3.2); LYMPHOCYTES % 7.6 % (18.0-39.1); MEAN CORPUSCULAR HEMOGLOBIN 28.7 pg (28-32); MEAN CORPUSCULAR HGB CONC 30.9 g/dL (31-35); MEAN CORPUSCULAR VOLUME 92.9 fL (81-99); MONOCYTES # (AUTO) 1.3 (0.2-0.8); MONOCYTES % 8.2 % (4.4-11.3); NEUTROPHILS # (AUTO) 12.5 (2.1-6.9); NEUTROPHILS % 76.8 % (38.7-80.0); PLATELET COUNT 548 x10e3/uL (140-360); RED BLOOD COUNT 2.68 x10e6/uL (4.3-5.7); RED CELL DISTRIBUTION WIDTH 19.5 % (11.7-14.4)
[2021-10-09] MEDS: METOCLOPRAMIDE HCL 10 MG/2ML VIAL IV SCH ×4 (05:44→23:35)
[2021-10-09] MEDS ORDERED: HEPARIN 25,000 UNIT DRIP IV ONE ×2 (05:50→23:30)
[2021-10-09] MEDS: HEPARIN 25,000 UNIT 1,500 UNIT in DEXTROSE 5% 250ML 250 ML IV SCH ×3 (05:56→23:35)
[2021-10-09 06:16] LABS: BLOOD UREA NITROGEN < 5 mg/dL (7-26); CALCIUM 7.7 mg/dL (8.4-10.2); CARBON DIOXIDE 29 mmol/L (22-29); CHLORIDE 99 mmol/L (98-107); CREATININE, SERUM 0.88 mg/dL (0.72-1.25); GLUCOSE 132 mg/dL (74-118); SODIUM 138 mmol/L (136-145)
[2021-10-09 06:19] LABS: BUN/CREATININE RATIO 6 (6-25)
[2021-10-09] MEDS: CYANOCOBALAMIN INJ 1,000 MCG/ML VIAL IM SCH (08:39)
[2021-10-09] MEDS: FUROSEMIDE 40 MG TAB PO SCH (08:40)
[2021-10-09] MEDS: IRON SUCROSE 100 MG in SODIUM CHLORIDE 0.9% 100 ML 100 ML IV SCH (08:42)
[2021-10-09] MEDS: NICOTINE 21 MG/EA PATCH TOP SCH (08:43)
[2021-10-09] MEDS: ALPRAZOLAM 0.5 MG TAB PO PRN ×2 (08:50→21:05)
[2021-10-09] MEDS: POTASSIUM CHLORIDE 10MEQ/100ML 100 ML IV SCH ×2 (10:45→14:00)
[2021-10-09] MEDS ORDERED: POTASSIUM CHLORIDE 20 MEQ TAB CR PO ONE (10:45)
[2021-10-09] MEDS ORDERED: CALCIUM GLUC 1 G/50 ML NACL 100 ML IV ONE (11:00)
[2021-10-09] MEDS: HYDROCODONE/APAP 5MG-325MG TAB PO PRN ×3 (13:54→23:35)
[2021-10-10] VITALS (9 sets, daily range): BP systolic 101–128; BP diastolic 65–83
[2021-10-10] MEDS: HYDROMORPHONE 1MG/1ML INJ IV PRN ×2 (03:05→10:22)
[2021-10-10] MEDS: HYDROCODONE/APAP 5MG-325MG TAB PO PRN (05:29)
[2021-10-10] MEDS: METOCLOPRAMIDE HCL 10 MG/2ML VIAL IV SCH ×3 (05:29→17:42)
[2021-10-10 06:13] LABS: BASOPHILS # (AUTO) 0.1 (0.0-0.1); BASOPHILS % 0.6 % (0.0-1.0); EOSINOPHILS # (AUTO) 0.2 (0.0-0.4); EOSINOPHILS % 1.6 % (0.0-6.0); HEMATOCRIT 24.9 % (38.2-49.6); HEMOGLOBIN 7.5 g/dL (14.0-18.0); LYMPHOCYTES # (AUTO) 1.5 (1.0-3.2); LYMPHOCYTES % 10.4 % (18.0-39.1); MEAN CORPUSCULAR HEMOGLOBIN 28.5 pg (28-32); MEAN CORPUSCULAR HGB CONC 30.1 g/dL (31-35); MEAN CORPUSCULAR VOLUME 94.7 fL (81-99); MONOCYTES # (AUTO) 1.1 (0.2-0.8); MONOCYTES % 8.2 % (4.4-11.3); NEUTROPHILS % 71.8 % (38.7-80.0); PLATELET COUNT 620 x10e3/uL (140-360); RED BLOOD COUNT 2.63 x10e6/uL (4.3-5.7); RED CELL DISTRIBUTION WIDTH 19.8 % (11.7-14.4)
[2021-10-10 06:44] LABS: ALANINE AMINOTRANSFERASE 14 IU/L (0-55); ALBUMIN 1.6 g/dL (3.5-5.0); ALBUMIN/GLOBULIN RATIO 0.4 (0.8-2.0); ALKALINE PHOSPHATASE 147 IU/L (40-150); ANION GAP 13.4 mmol/L (8-16); BLOOD UREA NITROGEN < 5 mg/dL (7-26); CALCIUM 7.8 mg/dL (8.4-10.2); CARBON DIOXIDE 28 mmol/L (22-29); CHLORIDE 101 mmol/L (98-107); CREATININE, SERUM 0.83 mg/dL (0.72-1.25); GLUCOSE 151 mg/dL (74-118); MAGNESIUM 1.4 MG/DL (1.3-2.1); PHOSPHORUS 2.9 MG/DL (2.3-4.7); POTASSIUM 3.4 mmol/L (3.5-5.1); SODIUM 139 mmol/L (136-145)
[2021-10-10 06:45] LABS: BUN/CREATININE RATIO 6 (6-25)
[2021-10-10] MEDS: NICOTINE 21 MG/EA PATCH TOP SCH (08:50)
[2021-10-10] MEDS: FUROSEMIDE 40 MG TAB PO SCH (08:50)
[2021-10-10] MEDS: IRON SUCROSE 100 MG in SODIUM CHLORIDE 0.9% 100 ML 100 ML IV SCH (08:51)
[2021-10-10] MEDS: CYANOCOBALAMIN INJ 1,000 MCG/ML VIAL IM SCH (08:51)
[2021-10-10] MEDS: ALPRAZOLAM 0.5 MG TAB PO PRN (10:23)
[2021-10-10] MEDS: HEPARIN 25,000 UNIT 1,500 UNIT in DEXTROSE 5% 250ML 250 ML IV SCH (10:54)
[2021-10-10] MEDS ORDERED: MAGNESIUM SULF 1GRAM/DEXTROSE 100 ML IV ONE (11:00)
[2021-10-10] MEDS ORDERED: POTASSIUM CHLORIDE 20 MEQ TAB CR PO ONE (11:00)
[2021-10-10] MEDS: OXYCODONE HCL IR 5 MG TAB PO PRN ×2 (12:31→18:51)
[2021-10-10 12:54] LABS: EOSINOPHILS % (MANUAL) 4 % (0-7); LYMPHOCYTES % (MANUAL) 9 % (19-48); MONOCYTES % (MANUAL) 7 % (3.4-9.0); NEUTROPHILS % (MANUAL) 80 % (40-74); PLATELET ESTIMATE SLIGHTLY INCREASED; PLATELET MORPHOLOGY COMMENT NORMAL; RBC MORPHOLOGY COMMENT NORMAL
[2021-10-10] MEDS: APIXABAN 5 MG TABLET PO SCH (17:42)
[2021-10-11] MEDS: METOCLOPRAMIDE HCL 10 MG/2ML VIAL IV SCH ×2 (00:47→05:45)
[2021-10-11] MEDS: OXYCODONE HCL IR 5 MG TAB PO PRN ×3 (00:47→12:40)
[2021-10-11] MEDS ORDERED: ALPRAZOLAM 1 MG TAB PO ONE (01:00)
[2021-10-11 05:04] VITALS: BP 127/79
[2021-10-11 08:02] VITALS: BP 125/74
[2021-10-11 08:05] LABS: BASOPHILS # (AUTO) 0.1 (0.0-0.1); BASOPHILS % 0.7 % (0.0-1.0); EOSINOPHILS # (AUTO) 0.3 (0.0-0.4); HEMATOCRIT 28.2 % (38.2-49.6); HEMOGLOBIN 8.2 g/dL (14.0-18.0); LYMPHOCYTES # (AUTO) 1.5 (1.0-3.2); LYMPHOCYTES % 11.2 % (18.0-39.1); MEAN CORPUSCULAR HGB CONC 29.1 g/dL (31-35); MEAN CORPUSCULAR VOLUME 96.2 fL (81-99); MONOCYTES # (AUTO) 1.2 (0.2-0.8); MONOCYTES % 8.8 % (4.4-11.3); NEUTROPHILS # (AUTO) 9.6 (2.1-6.9); PLATELET COUNT 779 x10e3/uL (140-360); RED BLOOD COUNT 2.93 x10e6/uL (4.3-5.7); RED CELL DISTRIBUTION WIDTH 19.9 % (11.7-14.4)
[2021-10-11 08:09] VITALS: BP 129/74
[2021-10-11 08:25] LABS: ANION GAP 13.8 mmol/L (8-16); BLOOD UREA NITROGEN < 5 mg/dL (7-26); CALCIUM 8.6 mg/dL (8.4-10.2); CARBON DIOXIDE 29 mmol/L (22-29); CHLORIDE 102 mmol/L (98-107); CREATININE, SERUM 0.92 mg/dL (0.72-1.25); GLUCOSE 103 mg/dL (74-118); POTASSIUM 3.8 mmol/L (3.5-5.1); SODIUM 141 mmol/L (136-145)
[2021-10-11 08:26] LABS: BUN/CREATININE RATIO 5 (6-25)
[2021-10-11] MEDS: FUROSEMIDE 40 MG TAB PO SCH (08:41)
[2021-10-11] MEDS: APIXABAN 5 MG TABLET PO SCH (08:41)
[2021-10-11] MEDS: NICOTINE 21 MG/EA PATCH TOP SCH (08:41)
[2021-10-11] MEDS: IRON SUCROSE 100 MG in SODIUM CHLORIDE 0.9% 100 ML 100 ML IV SCH (08:43)
[2021-10-11] MEDS: CYANOCOBALAMIN INJ 1,000 MCG/ML VIAL IM SCH (08:43)
[2021-10-11] MEDS ORDERED: ELIQUIS5 MG PO (10:18)
[2021-10-11] MEDS ORDERED: XANAX0.5 MG PO (10:18)
[2021-10-11] MEDS ORDERED: PANTOPRAZOLE SO40 MG PO (10:24)
[2021-10-11] MEDS ORDERED: Docusate Sodium PO (10:26)
[2021-10-11] MEDS ORDERED: FUROSEMIDE40 MG PO (10:26)
[2021-10-11] MEDS ORDERED: ONDANSETRON ODT4 MG PO (10:26)
[2021-10-11] MEDS ORDERED: NICODERM CQ1 EAC2 TOP (10:30)
[2021-10-11] MEDS ORDERED: FEOSOL325 MG PO (10:36)
[2021-10-11 11:59] VITALS: BP 135/75
== END 2021-10-11 14:43 | disposition home or self-care (01) | DRG 871 ==
LOC: ER 14:16 → ERHOLD 15:51 → EEVIPCON 15:51 → ICU 21:17 → MED/SURG3 10-04 17:06
PROVIDERS: ADMIT Internal Medicine; ATTEND Internal Medicine
PROC: 02HV33Z Insertion of Infusion Device into Superior Vena Cava, Percutaneous Approach (ICD-10-PCS; principal; 2021-09-29)
PROC: 3E04329 Introduction of Other Anti-infective into Central Vein, Percutaneous Approach (ICD-10-PCS; 2021-10-06)
PROC: 30243N1 Transfusion of Nonautologous Red Blood Cells into Central Vein, Percutaneous Approach (ICD-10-PCS; 2021-10-07)
DX: A41.9 Sepsis, unspecified organism (principal); K85.22 Alcohol induced acute pancreatitis with infected necrosis; R65.21 Severe sepsis with septic shock; N17.9 Acute kidney failure, unspecified; Z68.41 Body mass index [BMI] 40.0-44.9, adult; E87.2 Acidosis; E87.1 Hypo-osmolality and hyponatremia; F10.239 Alcohol dependence with withdrawal, unspecified; K86.0 Alcohol-induced chronic pancreatitis; Z79.4 Long term (current) use of insulin; E66.01 Morbid (severe) obesity due to excess calories; F17.200 Nicotine dependence, unspecified, uncomplicated; E78.5 Hyperlipidemia, unspecified; F41.9 Anxiety disorder, unspecified; Z90.49 Acquired absence of other specified parts of digestive tract; E83.51 Hypocalcemia; Z20.822 Contact with and (suspected) exposure to COVID-19; Z86.16 Personal history of COVID-19; D73.5 Infarction of spleen; D63.8 Anemia in other chronic diseases classified elsewhere; E87.6 Hypokalemia; R60.0 Localized edema; K70.10 Alcoholic hepatitis without ascites; Y90.6 Blood alcohol level of 120-199 mg/100 ml; E83.39 Other disorders of phosphorus metabolism; E11.69 Type 2 diabetes mellitus with other specified complication; D75.839 Thrombocytosis, unspecified; E83.42 Hypomagnesemia
CPT/HCPCS: 36415; 36569; 71045; 71260; 74177; 76770; 80048; 80053; 80320; 81001; 82140; 82150; 82270; 82570; 82607; 82728; 82746; 82948; 83010; 83540; 83605; 83690; 83735; 84100; 84300; 84466; 85025; 85045; 85610; 85730; 86850; 86900; 86920; 87040; 87086; 93005; 94664; 94799; 99284; J0610; J0696; J1170; J1644; J1756; J1885; J1940; J2060; J2270; J2405; J2543; J2765; J3370; J3411; J3420; J3475; J3480; J7030; J7050; J7121; P9016; Q9967